=== PATIENT | male | born 1935 | race Caucasian/White ===

== ENCOUNTER 2018-02-08 14:21 | Emergency (ER) | payer MEDICARE ==
[2018-02-08 14:40] VITALS: TEMP 97.8
--- NOTE | 2018-02-08 14:45 | ED ---
General Adult HPI - General Chief complaint: Recheck/Abnormal Lab/Rx Stated complaint: Fall/Head Injury Time Seen by Provider: 02/08/18 14:45 Source: patient Mode of arrival: ambulatory Limitations: no limitations - History of Present Illness Initial comments: Wily is an 82yo M since the emergency department today for reevaluation of a headache injury. Patient reports that on Friday he was in his home, he stood on his couch to reach something that was high up, he lost his balance and fell striking his head on the corner of a door. He obtained an abrasion to his right forehead, the patient is on Coumadin and does report that he was bleeding quite profusely. He sought care at a walk in clinic where butterfly sutures were applied and he was advised to follow-up for a head CT if he had any headache or mental status change. Patient does report some mild headache and lightheadedness since the fall, today his took the bandage off of the abrasion and noticed that it started bleeding at which time she decided to bring him to the ER for reevaluation. - Related Data Home Medications Medication Instructions Recorded Confirmed Allopurinol [Zyloprim] 100 mg PO HS 02/08/18 02/08/18 Cetirizine HCl [Zyrtec] 10 mg PO DAILY 02/08/18 02/08/18 Furosemide [Lasix] 40 mg PO DAILY 02/08/18 02/08/18 Levothyroxine Sodium [Synthroid] 137 mcg PO DAILY 02/08/18 02/08/18 Omeprazole 20 mg PO DAILY 02/08/18 02/08/18 Tamsulosin HCl [Flomax] 0.4 mg PO HS 02/08/18 02/08/18 Warfarin [Coumadin] 2.5 mg PO DAILY 02/08/18 02/08/18 amLODIPine/VALSARTAN [Exforge 1 tab PO DAILY 02/08/18 02/08/18 10-160 mg Tablet] Allergies Allergy/AdvReac Type Severity Reaction Status Date / Time No Known Allergies Allergy Verified 02/08/18 15:54 Review of Systems ROS Statement: Those systems with pertinent positive or pertinent negative responses have been documented in the HPI. ROS Other: All systems not noted in ROS Statement are negative. Constitutional: Denies: fever, chills Eyes: Denies: eye pain, vision change ENT: Denies: ear pain, throat pain Respiratory: Denies: cough, dyspnea Cardiovascular: Denies: chest pain, palpitations Endocrine: Denies: fatigue Gastrointestinal: Denies: abdominal pain, nausea, vomiting Genitourinary: Denies: urgency, dysuria Musculoskeletal: Denies: back pain Skin: Reports: other (abrasion to right forehead). Denies: as per HPI Neurological: Reports: headache. Denies: abnormal gait Psychiatric: Denies: anxiety, depression Hematological/Lymphatic: Reports: easy bleeding, easy bruising Past Medical History Past Medical History: Atrial Fibrillation, Coronary Artery Disease (CAD), Hypertension, Thyroid Disorder Additional Past Medical History / Comment(s): thyroid cancer History of Any Multi-Drug Resistant Organisms: MRSA Date of last positivie culture/infection: 2001 MDRO Source:: abd Past Surgical History: Heart Catheterization, Pacemaker Additional Past Surgical History / Comment(s): stomach surgery, thyroiectomy Past Psychological History: No Psychological Hx Reported Smoking Status: Former smoker Past Alcohol Use History: Daily Past Drug Use History: None Reported General Exam Limitations: no limitations General appearance: alert, in no apparent distress Head exam: Present: normocephalic, other (abrasion to right forehead in the hairline) Eye exam: Present: PERRL, EOMI. Absent: scleral icterus ENT exam: Present: normal exam Neck exam: Present: normal inspection, full ROM, other (no midline cervical spine tenderness) Respiratory exam: Absent: respiratory distress Cardiovascular Exam: Present: normal rhythm GI/Abdominal exam: Present: soft. Absent: distended Rectal exam: Present: deferred Extremities exam: Present: normal inspection, full ROM Back exam: Present: normal inspection, full ROM Neurological exam: Present: alert, oriented X3, CN II-XII intact Psychiatric exam: Present: normal affect, normal mood Skin exam: Present: warm, dry Course Vital Signs 02/08/18 02/08/18 14:35 16:05 Temperature 97.8 F 97.8 F Pulse Rate 73 61 Respiratory 18 16 Rate Blood Pressure 123/73 116/68 O2 Sat by Pulse 96 98 Oximetry - Reevaluation(s) Reevaluation #1: She was reevaluated, labs and imaging were discussed. Wound was cleaned and to metal splinters were moved from the abrasion. 02/08/18 16:03 Medical Decision Making - Medical Decision Making Patient was seen and evaluated, history was obtained from the patient and at bedside Patient on Plavix for arrhythmia had a mechanical fall on Friday. Was evaluated in urgent care clinic, no imaging was performed. Bleeding was controlled and event was placed on the abrasion on his forehead Patient experiencing persistent headache, as well as mild bleeding from the abrasion Trauma Labs, CT of the brain were ordered Labs reveal an INR of 3.0 Otherwise unremarkable Reveals no acute traumatic injury Wound was cleansed, 2 additional metal splinters were removed from the wound. There is an abrasion there is no indication for any suturing or further bandaging. I do feel that the bandaging is just causing more harm than good as a bandage that was on did not cover all of the abrasion and one removed pulled off some the skin as well as old on his hair. Advised the patient that he can put gauze on his head and wear a hat if he wants to cover the abrasion. Advised him to keep the wound clean and avoid sun exposure to promote healing. All questions pertaining to care were answered the best my ability the patient was discharged home in stable condition. - Lab Data Result diagrams: 02/08/18 15:13 02/08/18 15:13 Lab Results 02/08/18 02/08/18 02/08/18 Range/Units 15:13 15:13 15:13 WBC 6.0 (3.8-10.6) k/uL RBC 4.83 (4.30-5.90) m/uL Hgb 13.5 (13.0-17.5) gm/dL Hct 40.3 (39.0-53.0) % MCV 83.4 (80.0-100.0) fL MCH 28.0 (25.0-35.0) pg MCHC 33.5 (31.0-37.0) g/dL RDW 14.3 (11.5-15.5) % Plt Count 163 (150-450) k/uL Neutrophils % 74 % Lymphocytes % 16 % Monocytes % 6 % Eosinophils % 2 % Basophils % 1 % Neutrophils # 4.4 (1.3-7.7) k/uL Lymphocytes # 1.0 (1.0-4.8) k/uL Monocytes # 0.3 (0-1.0) k/uL Eosinophils # 0.1 (0-0.7) k/uL Basophils # 0.0 (0-0.2) k/uL PT (9.0-12.0) sec INR (<1.2) APTT (22.0-30.0) sec Sodium 132 L (137-145) mmol/L Potassium 3.8 (3.5-5.1) mmol/L Chloride 93 L (98-107) mmol/L Carbon Dioxide 25 (22-30) mmol/L Anion Gap 14 mmol/L BUN 16 (9-20) mg/dL Creatinine 0.86 (0.66-1.25) mg/dL Est GFR (CKD-EPI)AfAm >90 (>60 ml/min/1.73 sqM) Est GFR (CKD-EPI)NonAf 82 (>60 ml/min/1.73 sqM) Glucose 138 H (74-99) mg/dL Calcium 8.8 (8.4-10.2) mg/dL Total Bilirubin 1.4 H (0.2-1.3) mg/dL AST 23 (17-59) U/L ALT 25 (21-72) U/L Alkaline Phosphatase 77 (38-126) U/L Total Creatine Kinase 162 (55-170) U/L CK-MB (CK-2) 3.4 H* (0.0-2.4) ng/mL CK-MB (CK-2) Rel Index 2.1 Total Protein 8.1 (6.3-8.2) g/dL Albumin 4.5 (3.5-5.0) g/dL 02/08/18 Range/Units 15:13 WBC (3.8-10.6) k/uL RBC (4.30-5.90) m/uL Hgb (13.0-17.5) gm/dL Hct (39.0-53.0) % MCV (80.0-100.0) fL MCH (25.0-35.0) pg MCHC (31.0-37.0) g/dL RDW (11.5-15.5) % Plt Count (150-450) k/uL Neutrophils % % Lymphocytes % % Monocytes % % Eosinophils % % Basophils % % Neutrophils # (1.3-7.7) k/uL Lymphocytes # (1.0-4.8) k/uL Monocytes # (0-1.0) k/uL Eosinophils # (0-0.7) k/uL Basophils # (0-0.2) k/uL PT 27.2 H (9.0-12.0) sec INR 3.0 H (<1.2) APTT 31.3 H (22.0-30.0) sec Sodium (137-145) mmol/L Potassium (3.5-5.1) mmol/L Chloride (98-107) mmol/L Carbon Dioxide (22-30) mmol/L Anion Gap mmol/L BUN (9-20) mg/dL Creatinine (0.66-1.25) mg/dL Est GFR (CKD-EPI)AfAm (>60 ml/min/1.73 sqM) Est GFR (CKD-EPI)NonAf (>60 ml/min/1.73 sqM) Glucose (74-99) mg/dL Calcium (8.4-10.2) mg/dL Total Bilirubin (0.2-1.3) mg/dL AST (17-59) U/L ALT (21-72) U/L Alkaline Phosphatase (38-126) U/L Total Creatine Kinase (55-170) U/L CK-MB (CK-2) (0.0-2.4) ng/mL CK-MB (CK-2) Rel Index Total Protein (6.3-8.2) g/dL Albumin (3.5-5.0) g/dL Disposition Clinical Impression: Encounter for wound re-check, Fall at home, Abrasion of scalp Disposition: HOME SELF-CARE Is patient prescribed a controlled substance at d/c from ED?: No Referrals: Delfino Fox DO [Primary Care Provider] - 1-2 days Time of Disposition: 16:05
[2018-02-08 15:29] LABS: Basophils % (A) 1 %; Eosinophils # (A) 0.1 k/uL (0-0.7); Eosinophils % (A) 2 %; HCT 40.3 % (39.0-53.0); HGB 13.5 gm/dL (13.0-17.5); Lymphocytes % (A) 16 %; MCHC 33.5 g/dL (31.0-37.0); MCV 83.4 fL (80.0-100.0); Mean Platelet Volume 7.3; Monocytes # (A) 0.3 k/uL (0-1.0); Monocytes % (A) 6 %; Neutrophils # (A) 4.4 k/uL (1.3-7.7); Neutrophils % (A) 74 %; Platelet Count 163 k/uL (150-450); RBC 4.83 m/uL (4.30-5.90); RDW 14.3 % (11.5-15.5)
[2018-02-08 15:37] LABS: Partial Thromboplastin Time 31.3 sec (22.0-30.0); Prothrombin Time 27.2 sec (9.0-12.0)
[2018-02-08 15:39] LABS: ALT 25 U/L (21-72); AST 23 U/L (17-59); Albumin 4.5 g/dL (3.5-5.0); Alkaline Phosphatase 77 U/L (38-126); Anion Gap 14 mmol/L; Blood Urea Nitrogen 16 mg/dL (9-20); Calcium 8.8 mg/dL (8.4-10.2); Carbon Dioxide 25 mmol/L (22-30); Chloride 93 mmol/L (98-107); Glucose 138 mg/dL (74-99); Potassium 3.8 mmol/L (3.5-5.1); Sodium 132 mmol/L (137-145); Total Bilirubin 1.4 mg/dL (0.2-1.3); Total Protein 8.1 g/dL (6.3-8.2)
--- NOTE | 2018-02-08 15:48 | CT ---
EXAMINATION TYPE: CT brain saida ledezma DATE OF EXAM: 02/08/2018 COMPARISON: None HISTORY: Patient complains of headache and lightheadedness post fall [address] DLP: 1023.2 mGycm Automated exposure control for dose reduction was used. TECHNIQUE: CT scan of the head and cervical spine are performed without contrast. FINDINGS: There is cerebral cortical atrophy. There is no mass effect nor midline shift. There is n o sign of intracranial hemorrhage. There is mild hypodensity around the frontal horns of the lateral ventricles. Calvarium is intact. There is a mild cervical kyphotic curvature at C to C3 level. There is degenerative disc space narrow ing throughout the cervical spine. There is no evidence for fracture. Skull base is intact. There is multilevel hypertrophic cervical facet arthropathy. IMPRESSION: Cerebral atrophy. No acute intracranial abnormality. Spondylotic changes in the cervical spine. No fracture seen.
[2018-02-08 16:02] LABS: Creatine Kinase MB 3.4 ng/mL (0.0-2.4)
[2018-02-08 16:06] VITALS: RESP 16
[2018-02-08 16:45] VITALS: BP 117/69; PULSE 69
== END 2018-02-08 16:20 | disposition home or self-care (01) ==
LOC: EC 14:21
DX: S00.01XA Abrasion of scalp, initial encounter (principal); S00.81XA Abrasion of other part of head, initial encounter; I48.91 Unspecified atrial fibrillation; I25.10 Atherosclerotic heart disease of native coronary artery without angina pectoris; I10 Essential (primary) hypertension; Z85.850 Personal history of malignant neoplasm of thyroid; Z86.14 Personal history of Methicillin resistant Staphylococcus aureus infection; Z95.818 Presence of other cardiac implants and grafts; Z95.0 Presence of cardiac pacemaker; Z87.891 Personal history of nicotine dependence; Z79.01 Long term (current) use of anticoagulants; Z79.899 Other long term (current) drug therapy; W08.XXXA Fall from other furniture, initial encounter; Y92.009 Unspecified place in unspecified non-institutional (private) residence as the place of occurrence of the external cause
CPT/HCPCS: 36415; 70450; 72125; 80053; 82550; 82553; 85025; 85610; 85730; 86850; 86900; 86901; 93005; 99284

== ENCOUNTER 2018-02-13 10:36 | Inpatient (IN) | payer MEDICARE ==
[2018-02-13] MEDS ORDERED: NALOXONE 0.4 MG/ML 1 ML VIAL IV STA (10:47)
--- NOTE | 2018-02-13 10:48 | ED ---
General Adult HPI - General Stated complaint: Altered Mental Status Time Seen by Provider: 02/13/18 10:41 Source: EMS, RN notes reviewed, old records reviewed Mode of arrival: EMS Limitations: altered mental status - History of Present Illness Initial comments: 82-year-old male presenting with altered mental status. History obtained from EMS. Patient is unable to contribute, and there is no family available for history at the time of initial presentation. Patient has been dealing with some confusion over the past one week. These episodes been intermittent. He did have a fall with minor head trauma and was evaluated emergency department. Today patient's family called EMS for confusion. Upon arrival patient was alert according to EMS, he had an episode with right-sided gaze and what appeared to EMS as seizure-like activity. Patient was incontinent of urine. He was combative and confused after this episode. He was given IV Versed by EMS prior to arrival. EMS reported stable vital signs with paced rhythm on the monitor. EMS state patient is on blood thinners. - Related Data Home Medications Medication Instructions Recorded Confirmed Allopurinol [Zyloprim] 100 mg PO HS 02/08/18 02/13/18 Cetirizine HCl [Zyrtec] 10 mg PO DAILY 02/08/18 02/13/18 Furosemide [Lasix] 40 mg PO DAILY 02/08/18 02/13/18 Levothyroxine Sodium [Synthroid] 137 mcg PO DAILY 02/08/18 02/13/18 Omeprazole 20 mg PO DAILY 02/08/18 02/13/18 Tamsulosin HCl [Flomax] 0.4 mg PO HS 02/08/18 02/13/18 Warfarin [Coumadin] 2.5 mg PO DAILY 02/08/18 02/13/18 amLODIPine/VALSARTAN [Exforge 1 tab PO DAILY 02/08/18 02/13/18 10-160 mg Tablet] Naproxen [Naprosyn] 500 mg PO Q12HR PRN 02/13/18 02/13/18 Allergies Allergy/AdvReac Type Severity Reaction Status Date / Time No Known Allergies Allergy Verified 02/13/18 11:00 Review of Systems ROS Statement: Those systems with pertinent positive or pertinent negative responses have been documented in the HPI. ROS Other: All systems not noted in ROS Statement are negative. Past Medical History Past Medical History: Atrial Fibrillation, Coronary Artery Disease (CAD), Hypertension, Thyroid Disorder Additional Past Medical History / Comment(s): thyroid cancer History of Any Multi-Drug Resistant Organisms: MRSA Date of last positivie culture/infection: 2001 MDRO Source:: abd Past Surgical History: Heart Catheterization, Pacemaker Additional Past Surgical History / Comment(s): stomach surgery, thyroiectomy Past Psychological History: No Psychological Hx Reported Smoking Status: Former smoker Past Alcohol Use History: Daily Past Drug Use History: None Reported General Exam Limitations: altered mental status General appearance: obtunded Head exam: Present: atraumatic, normocephalic Eye exam: Present: other ENT exam: Present: mucous membranes dry Neck exam: Present: normal inspection. Absent: tenderness, meningismus Respiratory exam: Present: decreased breath sounds. Absent: respiratory distress Cardiovascular Exam: Present: regular rate, normal rhythm GI/Abdominal exam: Present: soft. Absent: distended, tenderness, guarding Neurological exam: Present: motor sensory deficit, other (Patient withdrawals to pain in all 4 extremities, this appears symmetric). Absent: alert, oriented X3 Skin exam: Present: warm, dry, intact. Absent: cyanosis, diaphoretic Course Vital Signs 02/13/18 02/13/18 02/13/18 10:38 11:07 11:16 Temperature 96.8 F L Pulse Rate 85 87 Respiratory 18 18 16 Rate Blood Pressure 104/59 106/68 O2 Sat by Pulse 93 L 95 Oximetry 02/13/18 02/13/18 12:00 13:00 Temperature Pulse Rate 104 H 67 Respiratory 16 16 Rate Blood Pressure 117/85 138/71 O2 Sat by Pulse 99 92 L Oximetry EKG Findings - EKG Comments: EKG Findings:: EKG, electronic ventricular pacer, rate of 78, QRS duration 178, QTC 524 Medical Decision Making - Medical Decision Making 82-year-old male presenting with altered mental status and concern for seizure. Shortly patient is confused, neurologic exam is nonfocal. After sometime in the emergency department does regain normal level consciousness. He is alert and oriented, nonfocal neurologic exam. Complaining of back pain. No other complaints when the patient is awake and alert. Head CT obtained, this is negative for intracranial hemorrhage or mass effect. Chest x-ray does show a left hemidiaphragm elevation and atelectasis. X-ray of the thoracic spine is obtained when patient begins to complain of pain as he has point tenderness in the thoracic vertebrate. This does reveal a compression fracture at T8. This may be secondary to seizure. CBC is unremarkable. INR therapeutic 2.1. Initial lactic acidosis is 10.7, this is secondary to seizure and improves to normal with no specific treatment. Other laboratory studies are unremarkable. Patient is started on Keppra, he will be admitted for further evaluation of new onset seizure. - Lab Data Result diagrams: 02/13/18 11:01 02/13/18 11:01 Lab Results 02/13/18 02/13/18 02/13/18 Range/Units 11:01 11: 11: WBC 8.0 (3.8-10.6) k/uL RBC 4.89 (4.30-5.90) m/uL Hgb 13.1 (13.0-17.5) gm/dL Hct 42.2 (39.0-53.0) % MCV 86.4 (80.0-100.0) fL MCH 26.7 (25.0-35.0) pg MCHC 31.0 (31.0-37.0) g/dL RDW 14.1 (11.5-15.5) % Plt Count 182 (150-450) k/uL Neutrophils % 63 % Lymphocytes % 29 % Monocytes % 4 % Eosinophils % 1 % Basophils % 0 % Neutrophils # 5.0 (1.3-7.7) k/uL Lymphocytes # 2.3 (1.0-4.8) k/uL Monocytes # 0.3 (0-1.0) k/uL Eosinophils # 0.1 (0-0.7) k/uL Basophils # 0.0 (0-0.2) k/uL PT (9.0-12.0) sec INR (<1.2) APTT (22.0-30.0) sec VBG pH (7.31-7.41) VBG pCO2 (37-51) mmHg VBG HCO3 (24-28) mmol/L Sodium 133 L (137-145) mmol/L Potassium 3.7 (3.5-5.1) mmol/L Chloride 95 L (98-107) mmol/L Carbon Dioxide 16 L (22-30) mmol/L Anion Gap 22 mmol/L BUN 20 (9-20) mg/dL Creatinine 1.00 (0.66-1.25) mg/dL Est GFR (CKD-EPI)AfAm 81 (>60 ml/min/1.73 sqM) Est GFR (CKD-EPI)NonAf 70 (>60 ml/min/1.73 sqM) Glucose 126 H (74-99) mg/dL POC Glucose (mg/dL) (75-99) mg/dL POC Glu Braid Pattern Setter ID Plasma Lactic Acid Chucho (0.7-2.0) mmol/L Calcium 8.6 (8.4-10.2) mg/dL Total Bilirubin 1.3 (0.2-1.3) mg/dL AST 33 (17-59) U/L ALT 22 (21-72) U/L Alkaline Phosphatase 82 (38-126) U/L Total Creatine Kinase 155 (55-170) U/L CK-MB (CK-2) 2.9 H* (0.0-2.4) ng/mL CK-MB (CK-2) Rel Index 1.9 Troponin I <0.012 (0.000-0.034) ng/mL Total Protein 8.0 (6.3-8.2) g/dL Albumin 4.5 (3.5-5.0) g/dL 02/13/18 02/13/18 02/13/18 Range/Units 11:01 11:01 11:01 WBC (3.8-10.6) k/uL RBC (4.30-5.90) m/uL Hgb (13.0-17.5) gm/dL Hct (39.0-53.0) % MCV (80.0-100.0) fL MCH (25.0-35.0) pg MCHC (31.0-37.0) g/dL RDW (11.5-15.5) % Plt Count (150-450) k/uL Neutrophils % % Lymphocytes % % Monocytes % % Eosinophils % % Basophils % % Neutrophils # (1.3-7.7) k/uL Lymphocytes # (1.0-4.8) k/uL Monocytes # (0-1.0) k/uL Eosinophils # (0-0.7) k/uL Basophils # (0-0.2) k/uL PT 19.0 H (9.0-12.0) sec INR 2.1 H (<1.2) APTT 29.4 (22.0-30.0) sec VBG pH 7.19 L* (7.31-7.41) VBG pCO2 53 H (37-51) mmHg VBG HCO3 20 L (24-28) mmol/L Sodium (137-145) mmol/L Potassium (3.5-5.1) mmol/L Chloride (98-107) mmol/L Carbon Dioxide (22-30) mmol/L Anion Gap mmol/L BUN (9-20) mg/dL Creatinine (0.66-1.25) mg/dL Est GFR (CKD-EPI)AfAm (>60 ml/min/1.73 sqM) Est GFR (CKD-EPI)NonAf (>60 ml/min/1.73 sqM) Glucose (74-99) mg/dL POC Glucose (mg/dL) (75-99) mg/dL POC Glu Braid Pattern Setter ID Plasma Lactic Acid Chucho 10.7 H* (0.7-2.0) mmol/L Calcium (8.4-10.2) mg/dL Total Bilirubin (0.2-1.3) mg/dL AST (17-59) U/L ALT (21-72) U/L Alkaline Phosphatase (38-126) U/L Total Creatine Kinase (55-170) U/L CK-MB (CK-2) (0.0-2.4) ng/mL CK-MB (CK-2) Rel Index Troponin I (0.000-0.034) ng/mL Total Protein (6.3-8.2) g/dL Albumin (3.5-5.0) g/dL 02/13/18 02/13/18 Range/Units 11:06 13:43 WBC (3.8-10.6) k/uL RBC (4.30-5.90) m/uL Hgb (13.0-17.5) gm/dL Hct (39.0-53.0) % MCV (80.0-100.0) fL MCH (25.0-35.0) pg MCHC (31.0-37.0) g/dL RDW (11.5-15.5) % Plt Count (150-450) k/uL Neutrophils % % Lymphocytes % % Monocytes % % Eosinophils % % Basophils % % Neutrophils # (1.3-7.7) k/uL Lymphocytes # (1.0-4.8) k/uL Monocytes # (0-1.0) k/uL Eosinophils # (0-0.7) k/uL Basophils # (0-0.2) k/uL PT (9.0-12.0) sec INR (<1.2) APTT (22.0-30.0) sec VBG pH (7.31-7.41) VBG pCO2 (37-51) mmHg VBG HCO3 (24-28) mmol/L Sodium (137-145) mmol/L Potassium (3.5-5.1) mmol/L Chloride (98-107) mmol/L Carbon Dioxide (22-30) mmol/L Anion Gap mmol/L BUN (9-20) mg/dL Creatinine (0.66-1.25) mg/dL Est GFR (CKD-EPI)AfAm (>60 ml/min/1.73 sqM) Est GFR (CKD-EPI)NonAf (>60 ml/min/1.73 sqM) Glucose (74-99) mg/dL POC Glucose (mg/dL) 112 H (75-99) mg/dL POC Glu Braid Pattern Setter ID Gaye Wagner Plasma Lactic Acid Chucho 1.4 (0.7-2.0) mmol/L Calcium (8.4-10.2) mg/dL Total Bilirubin (0.2-1.3) mg/dL AST (17-59) U/L ALT (21-72) U/L Alkaline Phosphatase (38-126) U/L Total Creatine Kinase (55-170) U/L CK-MB (CK-2) (0.0-2.4) ng/mL CK-MB (CK-2) Rel Index Troponin I (0.000-0.034) ng/mL Total Protein (6.3-8.2) g/dL Albumin (3.5-5.0) g/dL Disposition Clinical Impression: New onset seizure Disposition: ADMITTED IP TO THIS [facility] Condition: Stable Is patient prescribed a controlled substance at d/c from ED?: No Referrals: Delfino Fox DO [Primary Care Provider] - 1-2 days Decision to Admit Reason: Admit from EC Decision Date: 02/13/18 Decision Time: 14:15
[2018-02-13 11:15] LABS: Basophils % (A) 0 %; Eosinophils # (A) 0.1 k/uL (0-0.7); Eosinophils % (A) 1 %; HCT 42.2 % (39.0-53.0); HGB 13.1 gm/dL (13.0-17.5); Lymphocytes # (A) 2.3 k/uL (1.0-4.8); Lymphocytes % (A) 29 %; MCH 26.7 pg (25.0-35.0); MCV 86.4 fL (80.0-100.0); Mean Platelet Volume 7.9; Monocytes # (A) 0.3 k/uL (0-1.0); Monocytes % (A) 4 %; Neutrophils % (A) 63 %; Platelet Count 182 k/uL (150-450); RBC 4.89 m/uL (4.30-5.90); RDW 14.1 % (11.5-15.5)
--- NOTE | 2018-02-13 11:17 | CT ---
EXAMINATION TYPE: CT brain wo con DATE OF EXAM: 02/13/2018 COMPARISON: 02/08/2018 INDICATION: Altered mental status DLP: 1207 mGycm, Automated exposure control for dose reduction was used. CONTRAST: None CT of the brain is performed utilizing 3 mm thick sections through the posterior fossa and 3 mm thick sections through the remaining calvarium. Study is performed within 24 hours of arrival to the hosp ital. No abnormal hyperdensity is present to suggest an acute intracranial hemorrhage. No mass lesion is evident. No acute infarcts are evident. There is periventricular white matter hypodensity, likely on the basis of chronic white matter ischemic changes. Ventricles and sulci are mildly prominent for the patient age. Paranasal sinuses and mastoid air cells within the [id number] are clear. IMPRESSIONS: 1. Mild periventricular white matter ischemic type changes and age-related atrophy, stable from com parison.
[2018-02-13 11:18] LABS: Glucose,Whole Blood 112 mg/dL (75-99)
[2018-02-13 11:23] LABS: INR 2.1 (<1.2); Partial Thromboplastin Time 29.4 sec (22.0-30.0)
[2018-02-13] MEDS ORDERED: levETIRAcetam IV 1,000 MG in SALINE 1 100ML.BAG IVPB STA (11:23)
[2018-02-13 11:33] LABS: Albumin 4.5 g/dL (3.5-5.0); Calcium 8.6 mg/dL (8.4-10.2); Total Bilirubin 1.3 mg/dL (0.2-1.3)
[2018-02-13 11:35] LABS: Creatine Kinase 155 U/L (55-170)
[2018-02-13 11:36] LABS: Potassium 3.7 mmol/L (3.5-5.1)
[2018-02-13 11:47] LABS: Troponin I <0.012 ng/mL (0.000-0.034)
--- NOTE | 2018-02-13 11:48 | XR ---
EXAMINATION TYPE: XR chest 2V DATE OF EXAM: 02/13/2018 COMPARISON: NONE HISTORY: Altered mental status TECHNIQUE: Frontal and lateral views of the chest are obtained. FINDINGS: There is left hemidiaphragm elevation that may represent diaphragmatic paralysis or could be a chronic finding however no priors are available for comparison. This shifts the cardiac silhouet te to the right. Cardiac silhouette is enlarged. Subsegmental linear left basilar atelectasis is note d. Dual lead left-sided cardiac device is seen. There is generalized osseous demineralization and deg enerative change of the glenohumeral joints and thoracic spine. No focal consolidation or pneumothora x. No sizable pleural effusion. IMPRESSION: Left hemidiaphragm elevation and left basilar atelectasis are present although chronicit y is unknown without prior comparisons. If there is concern for diaphragmatic paralysis sniff test co uld be performed.
[2018-02-13 11:50] LABS: Creatine Kinase MB 2.9 ng/mL (0.0-2.4)
[2018-02-13] MEDS ORDERED: KETOROLAC 30 MG/ML 1 ML VIAL IVP STA (11:58)
[2018-02-13] MEDS ORDERED: SODIUM CHLORIDE 0.9% 1,000 ML IV ONE (11:58)
--- NOTE | 2018-02-13 12:38 | XR ---
EXAMINATION TYPE: XR thoracic spine 2V DATE OF EXAM: 02/13/2018 COMPARISON: None HISTORY: Pain TECHNIQUE: Three-view thoracic spine FINDINGS: There are 12 thoracic type vertebral bodies. The pedicles are intact. Disc heights are pres erved. Loss of T8 vertebral body height. No posterior wall displacement is identified in these images . Remaining vertebral body heights are preserved. IMPRESSION: 1. Compression deformity at T8 without posterior wall displacement is identified. This is of indeter minate age.
[2018-02-13 12:41] LABS: VBG PH 7.19 (7.31-7.41)
[2018-02-13] MEDS ORDERED: MORPHINE SULFATE 2 MG/ML SYRINGE IVP STA (13:16)
[2018-02-13] MEDS ORDERED: NALOXONE 0.4 MG/ML 1 ML VIAL IV PRN (14:31)
[2018-02-13] MEDS ORDERED: ACETAMINOPHEN TAB 325 MG TAB PO PRN (14:31)
[2018-02-13] MEDS ORDERED: IBUPROFEN 400 MG TAB PO PRN (14:31)
[2018-02-13] MEDS ORDERED: LORazepam 2 MG/ML INJ IV PRN (14:35)
[2018-02-13 14:45] LABS: Appearance,Urine Clear (Clear); Bilirubin,Urine Negative (Negative); Blood,Urine Negative (Negative); Color,Urine Light Yellow; Glucose,Urine (UA) Negative (Negative); Ketones,Urine Negative (Negative); Leukocyte Esterase,Urine Negative (Negative); Nitrite,Urine Negative (Negative); Protein,Urine Negative (Negative); Specific Gravity,Urine 1.005 (1.001-1.035); Urobilinogen,Urine <2.0 mg/dL (<2.0)
[2018-02-13 14:59] LABS: Amphetamine Screen,Urine Not Detected (NotDetected); Barbiturate Screen,Urine Not Detected (NotDetected); Benzodiazepines Screen,Urine Not Detected (NotDetected); Cocaine Screen,Urine Not Detected (NotDetected); Methadone Screen, Urine Not Detected (NotDetected); Opiate Screen,Urine Detected (NotDetected); Oxycodone Screen, Urine Not Detected (NotDetected); Phencyclidine Screen,Urine Not Detected (NotDetected); Tricyclic Antidepressant,Urine Not Detected (NotDetected); Urn Cannabinoid Scrn Not Detected (NotDetected)
[2018-02-13] MEDS ORDERED: NAPROXEN 250 MG TAB PO PRN (16:08)
[2018-02-13] MEDS ORDERED: ALPRAZolam 0.25 MG TAB PO PRN (16:09)
[2018-02-13] MEDS: MAGNESIUM SULFATE-D5W PMX 1 GM in DEXTROSE/WATER 1 100ML.BAG IVPB SCH ×2 (16:40→22:00)
[2018-02-13] MEDS: MORPHINE SULFATE 4 MG/ML SYRINGE IV PRN ×2 (17:37→22:18)
[2018-02-13 18:27] VITALS: BMI 25.8
[2018-02-13] MEDS ORDERED: MAGNESIUM SULFATE-D5W PMX 1 GM in DEXTROSE/WATER 1 100ML.BAG IVPB ONE (19:30)
[2018-02-13] MEDS ORDERED: SODIUM CHLORIDE 0.9% 1,000 ML with MVI, ADULT NO.4 WITH VIT K 10 ML, THIAMINE 100 MG, F... IV ONE ×4 (19:33)
[2018-02-13] MEDS: HYDROcodone/APAP 5-325MG 1 EACH TAB PO PRN (20:05)
[2018-02-13] MEDS: TAMSULOSIN 0.4 MG CAP.ER.24H PO SCH (20:06)
[2018-02-13] MEDS: MELATONIN 3 MG TABLET PO SCH (20:06)
[2018-02-13] MEDS: ALLOPURINOL 100 MG TAB PO SCH (20:06)
--- NOTE | 2018-02-13 20:13 | HP ---
HISTORY AND PHYSICAL CHIEF COMPLAINT: Change in mental status, confusion as well seizures. HISTORY OF PRESENT ILLNESS: This 82-year-old gentleman with a past medical history of atrial fibrillation, CAD, hypertension, hypothyroidism, was following with a physician in [place], [place]. The patient recently moved to [place]. The patient had a fall apparently a week ago. The patient is drinking about 2-3 beers a day. Patient was not drinking for some time and today the saw the patient was confused. The patient had eye rolling backward and a stiff posture and the patient was taken to [facility] and admitted for further evaluation and treatment. The patient is still minimally confused. Otherwise there is no history of any fever, any rigors, chills. No history of any chest pain, palpitations, hematochezia or melena. PAST MEDICAL HISTORY: Atrial fibrillation, CAD, hypertension, hyperlipidemia, MRSA, cardiac catheterization. MEDICATIONS PRIOR TO ADMISSION: Include: 1. Exforge 10/160 mg p.o. daily. 2. Coumadin 2.5 mg daily. 3. Flomax 0.4 q.h.s. omeprazole 20 mg daily. 4. Naprosyn 500 mg p.o. b.i.d. 5. Synthroid 136 mcg p.o. daily. 6. Lasix 40 mg p.o. daily. 7. Zyrtec 10 mg daily. 8. Zyloprim 100 mg p.o. q.h.s. ALLERGIES: None. FAMILY HISTORY: History of myocardial infarction in the family. SOCIAL HISTORY: Previous history of smoking. No history of alcohol intake. REVIEW OF SYSTEMS: ENT: Diminished hearing, diminished vision. CARDIOVASCULAR: No angina, palpitations. RESPIRATORY: No cough or hemoptysis. GI: No nausea or vomiting. : No dysuria. NERVOUS: As mentioned earlier. ALLERGY/IMMUNOLOGY: No asthma or hay fever. MUSCULOSKELETAL: As mentioned earlier. HEMATOLOGY/ONCOLOGY: No history of anemia. ENDOCRINE: No history of diabetes. Hypothyroidism. CONSTITUTIONAL: As mentioned earlier. DERMATOLOGY: Negative. RHEUMATOLOGY: Negative. PSYCHIATRY: As mentioned earlier. PHYSICAL EXAMINATION: Alert, oriented x3. Pulse 63, blood pressure 140/88, respirations 16, temperature 96.4, pulse ox 93% on 2L. HEENT: Conjunctivae normal. Oral mucosa moist. NECK: No jugular venous distention. No carotid bruits. No lymph node enlargement. CARDIOVASCULAR: S1, S2 muffled. No S3, S4. RESPIRATORY: Breath sounds diminished in the bases. No rhonchi. No crackles. ABDOMEN: Soft, nontender. No mass palpable. LEGS: No edema. No swelling. NERVOUS SYSTEM: Higher functions as mentioned earlier. Moves all 4 limbs. No focal motor or sensory deficits. LYMPHATIC: No lymphadenopathy in neck or axillae. SKIN: No ulcer, rash or bleeding. SKULL: Superficial excoriations present. LABS: INR 2.1, VBG of 7.1. Sodium 133. Lactic acid 10.7, improved to 1.4 with hydration. UA noted. The CT scan of the brain which was done in the ER showed mild periventricular white matter changes. Chest x-ray: Left hemidiaphragm elevation and left basilar atelectasis. Thoracic spine x-rays showed compression deformity of T8. ASSESSMENT: 1. New onset seizures for evaluation. 2. History of fall. 3. T8 compression fracture, age indeterminate. 4. Left base atelectasis. 5. History of atrial fibrillation. 6. History of coronary artery disease. 7. History of EtOH. 8. Possible withdrawal seizures. 9. Hypertension. 10.Hypothyroidism. 11.History of thyroid cancer. 12.History of Methicillin-resistant Staphylococcus aureus. 13.History of pacemaker. 14.History of cardiac catheterization. 15.Remote history of nicotine dependence. 16.Elevated lactic acid, possibly secondary to seizures. RECOMMENDATIONS AND DISCUSSION: In this 82-year-old gentleman who presented with multiple complex medical issues, will monitor the patient closely, continue the current medical management and symptomatic treatment. Otherwise at this time, I would recommend monitor closely, seizure precautions. We will observe seizure as well as DT precautions. Otherwise, Keppra has been initiated and Neurology consultation. Will resume the home medications supplement multivitamins and repeat labs have been ordered. Magnesium will be checked. We will initiate multivitamin drip, also. The overall prognosis is guarded because of multiple complex medical issues and further recommendations to follow. See orders for further details. Prognosis guarded. Alcohol cessation has been recommended. A copy of this dictation will be forwarded to Dr. Fox, who is the primary physician. Patient and the family understand and agree. MMODL / IJN: [id number] /
[2018-02-13] MEDS: levETIRAcetam 500 MG TAB PO SCH (22:17)
[2018-02-14 06:50] LABS: Basophils % (A) 0 %; Eosinophils # (A) 0.1 k/uL (0-0.7); Eosinophils % (A) 1 %; HCT 40.6 % (39.0-53.0); HGB 13.1 gm/dL (13.0-17.5); Lymphocytes # (A) 0.7 k/uL (1.0-4.8); Lymphocytes % (A) 16 %; MCH 27.2 pg (25.0-35.0); MCHC 32.4 g/dL (31.0-37.0); Mean Platelet Volume 7.5; Monocytes # (A) 0.3 k/uL (0-1.0); Monocytes % (A) 6 %; Neutrophils # (A) 3.6 k/uL (1.3-7.7); Neutrophils % (A) 76 %; Platelet Count 163 k/uL (150-450); RBC 4.83 m/uL (4.30-5.90); WBC 4.7 k/uL (3.8-10.6)
[2018-02-14 06:54] LABS: Prothrombin Time 18.2 sec (9.0-12.0)
[2018-02-14] MEDS: LEVOTHYROXINE 137 MCG TAB PO SCH (06:59)
[2018-02-14] MEDS: PANTOPRAZOLE 40 MG TABLET PO SCH (06:59)
[2018-02-14] MEDS: HYDROcodone/APAP 5-325MG 1 EACH TAB PO PRN ×2 (06:59→23:40)
[2018-02-14 07:20] LABS: Anion Gap 8 mmol/L; Blood Urea Nitrogen 22 mg/dL (9-20); Calcium 8.9 mg/dL (8.4-10.2); Carbon Dioxide 27 mmol/L (22-30); Chloride 95 mmol/L (98-107); Glucose 94 mg/dL (74-99); Magnesium 1.6 mg/dL (1.6-2.3); Potassium 4.3 mmol/L (3.5-5.1); Sodium 130 mmol/L (137-145)
[2018-02-14] MEDS: VALSARTAN 160 MG TAB PO SCH (09:27)
[2018-02-14] MEDS: LORATADINE 10 MG TAB PO SCH (09:28)
[2018-02-14] MEDS: FUROSEMIDE 40 MG TAB PO SCH (09:28)
[2018-02-14] MEDS: amLODIPine 10 MG TAB PO SCH (09:28)
[2018-02-14] MEDS: levETIRAcetam 500 MG TAB PO SCH ×2 (09:28→19:45)
[2018-02-14] MEDS: MORPHINE SULFATE 4 MG/ML SYRINGE IV PRN (12:29)
[2018-02-14] MEDS: MAGNESIUM SULFATE-D5W PMX 1 GM in DEXTROSE/WATER 1 100ML.BAG IVPB SCH ×2 (12:32→13:41)
--- NOTE | 2018-02-14 16:00 | CT ---
EXAMINATION TYPE: CT lumbar spine wo con DATE OF EXAM: 02/14/2018 3:45 PM COMPARISON: None HISTORY: Back pain. CT DLP: 582.2 mGycm Automated exposure control for dose reduction was used. Unenhanced CT of the lumbar spine was performed. Bone and soft tissue window settings are submitted as well as coronal and sagittal reconstructions. FINDINGS: Vertebral bodies of the lumbar spine maintain normal vertebral body heights and alignment. Focal sclerotic nonspecific lesion is seen of the right lateral margin of the L3 vertebral body measu ring 6 mm. And additional subcentimeter focus is seen within the right sacral ala on series 4 image 8 4. Multilevel degenerative disc disease would be better evaluated on MRI. There is also limited evalu ation of the spinal canal on CT. Extensive calcific atheromatous changes seen of the abdominal aorta and its branches. L1-L2: There is a broad-based disc bulge and facet arthropathy resulting in mild bilateral neural for aminal narrowing. No discrete spinal canal stenosis. L2-L3: There is a broad-based disc bulge, ligamentum flavum buckling, and facet arthropathy resulting in mild bilateral neural foraminal narrowing and without discrete spinal canal stenosis on CT. L3-L4: There is a broad-based disc bulge and facet arthropathy with ligamentum flavum buckling result ing in mild bilateral neural foraminal narrowing. No discrete disc herniation on CT or spinal canal s tenosis. L4-L5: There is a possible right paracentral disc herniation that would be better evaluated with MRI. There is at least a broad-based disc bulge resulting in moderate bilateral neural foraminal narrowin g and mild spinal canal stenosis. L5-S1: There is a broad-based disc bulge and facet arthropathy resulting in mild bilateral neural for aminal narrowing. No spinal canal stenosis. IMPRESSION: 1. No evidence of acute fracture or malalignment of the lumbar spine. The previously seen compression deformity of the radiographs of 02/06/1718 at T8 is not seen in the [id number] on this examination of the lumbar spine. 2. Multilevel moderate degenerative disc disease creating variable degrees of neural foraminal narrow ing as described above and at least mild spinal canal stenosis at L4-L5. There is suspicion for right paracentral disc herniation at L4-L5. This could be better evaluated with MRI. 2. 2 nonspecific subcentimeter sclerotic foci that could relate to bone islands but are overall indet erminant.
--- NOTE | 2018-02-14 16:20 | PN ---
PROGRESS NOTE DATE OF SERVICE: 02/14/2018 This is an 82-year-old gentleman admitted with change in mental status, confusion, seizure, also had alcohol withdrawal symptoms. There is no severe hypomagnesemia and thoracic spine x-ray was also done yesterday showed a compression deformity of T8 without any posterior wall displacement. No chest pain. No palpitations. The patient complaining of severe back pain. PAST MEDICAL HISTORY: Reviewed. REVIEW OF SYSTEMS: CARDIOVASCULAR: No angina. RESPIRATION: As mentioned earlier. GI: As mentioned earlier. : Negative. NERVOUS SYSTEM: No numbness, weakness. CURRENT MEDICATIONS: 1. Tylenol 650 q.6 p.r.n. 2. [place] 5 mg. 3. Zyloprim 100 mg b.i.d. 4. Xanax 0.5 t.i.d. 5. Norvasc 10 mg daily. 6. Lasix 40 mg daily. 7. Motrin. 8. Keppra 500 mg b.i.d. 9. Synthroid 137 mcg p.o. daily. 10.Claritin daily. 11.Ativan 2 mg p.r.n. 12.Melatonin 3 mg. 13.Narcan. 14.Naprosyn. 15.Protonix. 16.Flomax 0.4 q.h.s. 17.Diovan 160 mg p.o. daily. PHYSICAL EXAMINATION: Alert and oriented x3. Pulse 72, blood pressure 144/75, respiration 18, temperature 97 degrees, pulse ox 94% on 2 L. HEENT: Conjunctivae normal, oral mucosa moist. Neck is no jugular venous distention. No lymph node enlargement. CARDIOVASCULAR SYSTEMS: S1, S2, muffled. RESPIRATION: Breath sounds diminished at the bases, a few scattered rhonchi, no crackles. ABDOMEN: Soft, nontender. No mass palpable. LEGS: No edema, no swelling. NERVOUS SYSTEM: Diffusely weak. Back tenderness present. LABS: CBC within normal limits. INR is 2. Sodium is 130. ASSESSMENT: 1. New onset seizures, possibly drug withdrawal seizures. 2. Severe hypomagnesemia. 3. History of fall. 4. T8 compression fracture, age indeterminate. 5. Left base atelectasis. 6. History of atrial fibrillation. 7. History of coronary artery disease. 8. History of ETOH. 9. Possible withdrawal seizures. 10.Hypertension. 11.Hypothyroidism. 12.History of thyroid cancer. 13.History of methicillin-resistant Staphylococcus aureus. 14.History of pacemaker. 15.History of cardiac catheterization. 16.Remote history of nicotine dependence. 17.Elevated lactic acid, possibly secondary to seizures. RECOMMENDATION: Recommend to continue current management. I would recommend intravenous morphine on a p.r.n. basis. Otherwise, I would also recommend a CAT scan. DVT prophylaxis. Otherwise, continue to monitor. Guarded prognosis because of multiple complex medical issues. See orders for details. CAT scan of the spine will be obtained and further recommendations to follow. Also get a Dr. Rivas for evaluation for evaluation of the multiple fractures also. MMODL / IJN: [id number] /
[2018-02-14] MEDS: KETOROLAC 30 MG/ML 1 ML VIAL IVP SCH (19:44)
[2018-02-14] MEDS: MELATONIN 3 MG TABLET PO SCH (19:45)
[2018-02-14] MEDS: ALLOPURINOL 100 MG TAB PO SCH (19:45)
[2018-02-14] MEDS: TAMSULOSIN 0.4 MG CAP.ER.24H PO SCH (19:45)
--- NOTE | 2018-02-14 21:44 | P.CNNES ---
History of Present Illness Consult date: 02/14/18 Requesting physician: Suman Brambila Reason for Consult: New Onset Seizure Chief complaint: Seizure History of Present Illness: neurology is consult seeing on an 82-year-old male with altered mental status, possible seizure. Patient was confused in the ED. He then returned to baseline , became alert and oriented with nonfocal neurological exam. Patient had secondary back pain complaints. Head CT was negative for intracranial hemorrhage or mass effect. X-ray of thoracic spine for point tenderness over thoracic region. Noted compression fracture T8. Indeterminate age, possibly related to fall but undetermined. Patient was started on Keppra and admitted for further observation. At initial contact, patient was resting in bed, no acute distress, alert and oriented 3 and family in the room. Patient and family describe a proximally 3- 6 months of progressive petit mall escalating to grand mal seizure with the most recent occurrence. Patient has been having petit mal seizure like activity several times per week. Patient did state he could feel the occurrence pending prior to the actual event. Patient has no prior seizure history. Review of Systems Systems not noted in HPI or negative Past Medical History Past Medical History: Atrial Fibrillation, Coronary Artery Disease (CAD), Hypertension, Thyroid Disorder Additional Past Medical History / Comment(s): thyroid cancer History of Any Multi-Drug Resistant Organisms: MRSA Date of last positivie culture/infection: 2001 MDRO Source:: abd Past Surgical History: Heart Catheterization, Pacemaker Additional Past Surgical History / Comment(s): stomach surgery, thyroidectomy, sinus surgery Past Anesthesia/Blood Transfusion Reactions: No Reported Reaction Type of Cardiac Device: Unknown Device Placement Date:: October 2015 Past Psychological History: No Psychological Hx Reported Smoking Status: Former smoker Past Alcohol Use History: Daily Additional Past Alcohol Use History / Comment(s): 2-3 beers daily, not drinking recently due to being sick-last drink one week ago Past Drug Use History: None Reported - Past Family History Father Family Medical History: Myocardial Infarction ([place]) Sister(s) Family Medical History: Cancer Additional Family Medical History / Comment(s): Thyroid Mother Family Medical History: Diabetes Mellitus Medications and Allergies Home Medications Medication Instructions Recorded Confirmed Type Allopurinol [Zyloprim] 100 mg PO HS 02/08/18 02/13/18 History Cetirizine HCl [Zyrtec] 10 mg PO DAILY 02/08/18 02/13/18 History Furosemide [Lasix] 40 mg PO DAILY 02/08/18 02/13/18 History Levothyroxine Sodium [Synthroid] 137 mcg PO DAILY 02/08/18 02/13/18 History Omeprazole 20 mg PO DAILY 02/08/18 02/13/18 History Tamsulosin HCl [Flomax] 0.4 mg PO HS 02/08/18 02/13/18 History Warfarin [Coumadin] 2.5 mg PO DAILY 02/08/18 02/13/18 History amLODIPine/VALSARTAN [Exforge 1 tab PO DAILY 02/08/18 02/13/18 History 10-160 mg Tablet] Naproxen [Naprosyn] 500 mg PO Q12HR PRN 02/13/18 02/13/18 History Allergies Allergy/AdvReac Type Severity Reaction Status Date / Time No Known Allergies Allergy Verified 02/13/18 11:00 Physical Examination - Vital Signs Vital Signs: Vital Signs Temp Pulse Resp BP Pulse Ox 02/14/18 19:43 97.4 F L 70 20 151/77 91 L 02/14/18 16:00 97.0 F L 64 18 132/68 92 L 02/14/18 12:00 97.2 F L 61 18 123/67 90 L 02/14/18 08:00 97.0 F L 72 18 144/74 95 02/14/18 04:00 97.9 F 63 16 137/72 97 02/14/18 00:00 96.3 F L 61 18 162/77 95 Intake and Output 02/14/18 02/14/18 02/14/18 06:59 14:59 22:59 Intake Total 590 530 Output Total 200 750 225 Balance -200 -160 305 Intake: Intake, IV Titration 180 200 Amount Magnesium Sulfate-D5w Pmx 100 1 gm In Dextrose/Water 1 100ml.bag @ 100 mls/hr IVPB Q1H SHARIF Rx#: [id number] Magnesium Sulfate-D5w Pmx 100 1 gm In Dextrose/Water 1 100ml.bag @ 100 mls/hr IVPB Q1H SHARIF Rx#: [id number] Sodium Chloride 0.9% 1, 180 000 ml @ 60 mls/hr IV . [id number] ONE with Mvi, Adult No.4 with Vit K 10 ml with Thiamine 100 mg with Folic Acid 1 mg Rx#: [id number] Oral 410 330 Output: Urine 200 750 225 Other: # Voids 0 Weight 74.5 kg General appearance: Alert & oriented x3, no apparent distress. Head: Atraumatic, normocephalic, normal inspection Eyes: Well appearance, PERRLA, EOMI. Absent scleral icterus, conjunctival injection, nystagmus, periorbital swelling. Ear, nose and throat: Normal exam, mucous membranes moist Neck: Normal inspection, absent tenderness, lymphadenopathy. Respiratory: No increased work of breathing Cardiovascular: Regular rate, rhythm GI/abdominal: Normal bowel sounds, nondistended, no tenderness, no guarding, no rebound, no rigidity. Extremities: All range of motion, normal capillary refill, no tenderness, pedal edema joint swelling, calf tenderness. Integumentary: Frontal laceration/avulsion in healing process. Neurological: cranial nerves II through XII intact no lateralizing weakness no seizure activity noted on physical exam no pronator drift and no nystagmus. equal in all 4 extremities Sensation: normal to light touch 4 Psychological: Mood and affect appropriate for setting. Results as previously noted EEG ordered - Laboratory Findings CBC and BMP: 02/14/18 06:29 02/14/18 06:29 Abnormal Lab Findings: Abnormal Labs 02/13/18 02/13/18 02/13/18 11:01 11:01 11:01 Lymphocytes # PT INR VBG pH VBG pCO2 VBG HCO3 Sodium 133 L Chloride 95 L Carbon Dioxide 16 L BUN Glucose 126 H POC Glucose (mg/dL) Plasma Lactic Acid Chucho 10.7 H* Magnesium CK-MB (CK-2) 2.9 H* Urine Opiates Screen 02/13/18 02/13/18 02/13/18 11:01 11:01 11:01 Lymphocytes # PT 19.0 H INR 2.1 H VBG pH 7.19 L* VBG pCO2 53 H VBG HCO3 20 L Sodium Chloride Carbon Dioxide BUN Glucose POC Glucose (mg/dL) Plasma Lactic Acid Chucho Magnesium 0.6 L* CK-MB (CK-2) Urine Opiates Screen 02/13/18 02/13/18 02/14/18 11:06 14:39 06:29 Lymphocytes # 0.7 L PT INR VBG pH VBG pCO2 VBG HCO3 Sodium Chloride Carbon Dioxide BUN Glucose POC Glucose (mg/dL) 112 H Plasma Lactic Acid Chucho Magnesium CK-MB (CK-2) Urine Opiates Screen Detected H 02/14/18 02/14/18 06:29 06:29 Lymphocytes # PT 18.2 H INR 2.0 H VBG pH VBG pCO2 VBG HCO3 Sodium 130 L Chloride 95 L Carbon Dioxide BUN 22 H Glucose POC Glucose (mg/dL) Plasma Lactic Acid Chucho Magnesium CK-MB (CK-2) Urine Opiates Screen Assessment and Plan (1) New onset seizure Narrative/Plan: although the patient has no prior history of seizure, it does appear that over the last 3-6 months, the patient has been having petit mal seizure activity on a consistent but intermittent basis. Patient notes that he was fatigued after occurrences within that timeframe as well as had personal perception of pending occurrence. It also appears that the patient has developed initial grand mal seizure just prior to presentation. Patient did have loss of bowel and bladder , was postictal with confusion and lethargy. After re-discussing the sequence of events, it does appear that the seizure preceded the fall and thus the injury was secondary to seizure. Patient reports no other neurological deficits and none were found on physical exam. Patient CT brain is as noted. Patient is tolerating medication well. Patient was started on IV Keppra 1000 mg and will be transitioned to 500 mg twice a day as the maintenance dose. Patient has remained asymptomatic since medication therapy was started. If patient remains asymptomatic and EEG is taken, patient can be cleared from a neurological standpoint on 02/15/18. Patient would then be required to follow up in the office within 10-14 days. Nursing to report any neurological status changes, maintain seizure precaution and neurological checks as ordered. Current Visit: Yes Status: Acute Code(s): R56.9 - UNSPECIFIED CONVULSIONS SNOMED Code(s): 62968252 (2) Abrasion of scalp Narrative/Plan: Secondary to fall related seizure Current Visit: No Status: Acute Code(s): S00.01XA - ABRASION OF SCALP, INITIAL ENCOUNTER SNOMED Code(s): 731640950 (3) Fall at home Narrative/Plan: as noted above Current Visit: No Status: Acute Code(s): W19.XXXA - UNSPECIFIED FALL, INITIAL ENCOUNTER; Y92.009 - UNSP PLACE IN UNSP NON-[facility] RESIDENCE PL[facility] SNOMED Code(s): 24672211 Plan: STATUS: Neurology will continue to follow and provide updates as needed or warranted. If patient's EEG is taken and patient remains asymptomatic prior to neuro-oncology rounding on 02/15/18, patient can be discharged from a neurological standpoint. I have discussed the plan of care with the physician prior to implementation and he agrees with the plan as implemented.
[2018-02-15] MEDS: MORPHINE SULFATE 4 MG/ML SYRINGE IV PRN (03:50)
[2018-02-15 07:03] LABS: Basophils % (A) 1 %; Eosinophils # (A) 0.1 k/uL (0-0.7); Eosinophils % (A) 1 %; HCT 40.9 % (39.0-53.0); HGB 13.4 gm/dL (13.0-17.5); Lymphocytes # (A) 0.7 k/uL (1.0-4.8); Lymphocytes % (A) 15 %; MCH 27.6 pg (25.0-35.0); MCHC 32.9 g/dL (31.0-37.0); MCV 83.8 fL (80.0-100.0); Mean Platelet Volume 8.1; Monocytes # (A) 0.2 k/uL (0-1.0); Monocytes % (A) 5 %; Neutrophils # (A) 3.4 k/uL (1.3-7.7); Neutrophils % (A) 77 %; Platelet Count 144 k/uL (150-450); RBC 4.88 m/uL (4.30-5.90); WBC 4.5 k/uL (3.8-10.6)
[2018-02-15] MEDS: PANTOPRAZOLE 40 MG TABLET PO SCH (07:07)
[2018-02-15] MEDS: LEVOTHYROXINE 137 MCG TAB PO SCH (07:07)
[2018-02-15 07:09] LABS: INR 1.4 (<1.2); Prothrombin Time 13.5 sec (9.0-12.0)
[2018-02-15 07:18] LABS: Anion Gap 9 mmol/L; Blood Urea Nitrogen 20 mg/dL (9-20); Calcium 9.3 mg/dL (8.4-10.2); Carbon Dioxide 27 mmol/L (22-30); Chloride 95 mmol/L (98-107); Glucose 99 mg/dL (74-99); Potassium 4.3 mmol/L (3.5-5.1); Sodium 131 mmol/L (137-145)
[2018-02-15] MEDS: amLODIPine 10 MG TAB PO SCH (08:43)
[2018-02-15] MEDS: FUROSEMIDE 40 MG TAB PO SCH (08:43)
[2018-02-15] MEDS: LORATADINE 10 MG TAB PO SCH (08:43)
[2018-02-15] MEDS: VALSARTAN 160 MG TAB PO SCH (08:43)
[2018-02-15] MEDS: levETIRAcetam 500 MG TAB PO SCH ×2 (08:43→20:59)
[2018-02-15] MEDS: KETOROLAC 30 MG/ML 1 ML VIAL IVP SCH ×2 (08:43→20:59)
--- NOTE | 2018-02-15 13:15 | PN ---
PROGRESS NOTE DATE OF SERVICE: 02/15/2018 This 82-year-old gentleman who was admitted with change in mental status, confusion, seizure, also had alcohol withdrawal symptoms. The patient also had severe hypomagnesemia corrected. The patient also had complaining of chest pain and back pain. A lumbar spine CT scan showed multilevel DJD. The patient is being closely monitored. No chest pain. No palpitations. PHYSICAL EXAM: Alert and oriented times three. Pulse 71, blood pressure 136/77, respiratory rate 20, temperature 97.2, pulse ox 94% on 2 L. HEENT is conjunctivae normal. Oral mucosa moist. Neck is no jugular. No carotid bruit. No lymph node enlargement. Cardiovascular: S1, S2. Respiratory: Breath sounds diminished in the bases. A few scattered rhonchi. No crackles. ABDOMEN: Soft, nontender. No mass palpable. Legs are no edema, no swelling. Central nervous system: No focal deficits. LABS: WBC 4.2, hemoglobin 13.9. Sodium is 131. ASSESSMENT: 1. New onset seizures, possibly alcohol withdrawal seizures. 2. Severe hypomagnesemia. 3. History of fall. 4. Back pain and possibly T8 compression fracture, age indeterminate. 5. Left base atelectasis. 6. History of atrial fibrillation. 7. History of coronary artery disease. 8. History of ETOH. 9. Possible withdrawal seizures. 10.Hypertension. 11.Hypothyroidism. 12.History of thyroid cancer. 13.History of MRSA. 14.History of pacemaker. 15.History of cardiac catheterization. 16.Remote history of nicotine dependence. 17.Elevated lactic acid, possibly secondary to seizures. RECOMMENDATION AND DISCUSSION: In this 82-year-old gentleman who presented with multiple complex medical issues , we will monitor the patient closely, continue the current management. Continue symptomatic treatment. Otherwise, at this time, I recommend PT/OT evaluation. Continue the rest of the home medications. Otherwise prognosis guarded. Further recommendations to follow. MMODL / IJN: [id number] / PAMELA
--- NOTE | 2018-02-15 17:52 | P.PN ---
Subjective Progress Note Date: 02/15/18 Principal diagnosis: seizure Neurology is following an 82-year-old male with new onset seizure. Patient complained of altered mental status, possible seizure and was confused in the emergency department. Patient became alert and oriented while in the ED. Patient did have complaints of thoracic and low back pain that were managed by activated sludge attendant. With regard to patient's altered mental status, patient has had an ongoing history intermittent but recurrent episodes of what appears to be petit mal seizure which have progressed to grand mal seizure with most recent occurrence. Patient has been having petit mal seizure like activity several times per week. Patient states he could feel the occurrence is pending prior to the actual event. On one occurrence, patient did have lateral release. Patient did report feeling fatigued after the event. again, nursing reports no seizure-like activity within the previous 24 hours. Patient denies any change in neurological status and functioning. On contact today for follow-up, patient was resting in bed, supine, no acute distress. patient is alert and oriented 3. Family was in the room. Objective - Vital Signs Vital signs: Vital Signs Temp 98.0 F 02/15/18 16:00 Pulse 72 02/15/18 16:00 Resp 18 02/15/18 16:00 BP 128/69 02/15/18 16:00 Pulse Ox 94 L 02/15/18 16:00 Intake & Output 02/14/18 02/15/18 02/15/18 18:59 06:59 18:59 Intake Total 790 330 240 Output Total 750 875 Balance 40 -545 240 Weight 73.4 kg Intake: Intake, IV Titration 380 Amount Magnesium Sulfate-D5w Pmx 100 1 gm In Dextrose/Water 1 100ml.bag @ 100 mls/hr IVPB Q1H [facility] [place] Rx#: [id number] Magnesium Sulfate-D5w Pmx 100 1 gm In Dextrose/Water 1 100ml.bag @ 100 mls/hr IVPB Q1H [facility] [place] Rx#: [id number] Sodium Chloride 0.9% 1, 180 000 ml @ 60 mls/hr IV . [id number] ONE with Mvi, Adult No.4 with Vit K 10 ml with Thiamine 100 mg with Folic Acid 1 mg Rx#: [id number] Oral 410 330 240 Output: Urine 750 875 Other: Voiding Method Urinal # Voids 0 0 - Exam General appearance: Alert & oriented x3, no apparent distress. Head: Atraumatic, normocephalic, normal inspection Eyes: Well appearance, PERRLA, EOMI. Absent scleral icterus, conjunctival injection, nystagmus, periorbital swelling. Ear, nose and throat: Normal exam, mucous membranes moist Neck: Normal inspection, absent tenderness, lymphadenopathy. Respiratory: No increased work of breathing Cardiovascular: Regular rate, rhythm GI/abdominal: No guarding Extremities: Full range of motion, normal capillary refill, no tenderness, pedal edema joint swelling, calf tenderness. Neurological: cranial nerves II through XII intact no lateralizing weakness no seizure activity noted on physical exam no pronator drift and no nystagmus. Left lower extremity: 5/5 Right lower extremity: 5/5 Left upper extremity: 5/5 Right upper extremity:5/5 Sensation: Left lower extremity: normal Right lower extremity: normal Left upper extremity: normal Right upper extremity:normal Psychological: Mood and Affect appropriate for setting - Labs CBC & Chem 7: 02/15/18 06:50 02/15/18 06:50 Labs: Abnormal Lab Results - Last 24 Hours (Table) 02/15/18 02/15/18 02/15/18 Range/Units 06:50 06:50 06:50 Plt Count 144 L (150-450) k/uL Lymphocytes # 0.7 L (1.0-4.8) k/uL PT 13.5 H (9.0-12.0) sec INR 1.4 H (<1.2) Sodium 131 L (137-145) mmol/L Chloride 95 L (98-107) mmol/L Assessment and Plan (1) New onset seizure Narrative/Plan: Although the patient has no prior history of seizure, it does appear that over the last 3-6 months, the patient has been having petit mal seizure activity on a consistent but intermittent basis. Patient notes that he was fatigued after occurrences within that timeframe as well as had personal perception of pending occurrence. It also appears that the patient has developed initial grand mal seizure just prior to presentation. Patient did have loss of bowel and bladder , was postictal with confusion and lethargy. After re-discussing the sequence of events, it does appear that the seizure preceded the fall and thus the injury was secondary to seizure. Patient reports no other neurological deficits and none were found on physical exam. Patient CT brain is as noted. Patient is tolerating medication well. Patient was started on IV Keppra 1000 mg and will be transitioned to 500 mg twice a day as the maintenance dose. Patient has remained asymptomatic since medication therapy was started. EEG taken. Patient returned to baseline from a neurological standpoint. It's any medication as noted outpatient. Current Visit: Yes Status: Acute Code(s): R56.9 - UNSPECIFIED CONVULSIONS SNOMED Code(s): 10509544 (2) Abrasion of scalp Narrative/Plan: Secondary to fall related seizure Current Visit: No Status: Acute Code(s): S00.01XA - ABRASION OF SCALP, INITIAL ENCOUNTER SNOMED Code(s): 726085168 (3) Fall at home Narrative/Plan: as noted above Current Visit: No Status: Acute Code(s): W19.XXXA - UNSPECIFIED FALL, INITIAL ENCOUNTER; Y92.009 - UNSP PLACE IN UNSP NON-INSTITUT (PRIVATE) RESIDENCE PLACE SNOMED Code(s): 28012504 Plan: STATUS: neurology will clear the patient from a neurological standpoint. Patient to follow-up in the office within 10-14 days. I have discussed the plan of care with the physician prior to implementation and he agrees with the plan as implemented.
[2018-02-15] MEDS ORDERED: WARFARIN 2.5 MG TAB PO SCH (18:00)
[2018-02-15 20:58] VITALS: RESP 16
[2018-02-15] MEDS: TAMSULOSIN 0.4 MG CAP.ER.24H PO SCH (20:59)
[2018-02-15] MEDS: MELATONIN 3 MG TABLET PO SCH (20:59)
[2018-02-15] MEDS: ALLOPURINOL 100 MG TAB PO SCH (20:59)
[2018-02-16] MEDS: LEVOTHYROXINE 137 MCG TAB PO SCH (07:04)
[2018-02-16] MEDS: PANTOPRAZOLE 40 MG TABLET PO SCH (07:04)
[2018-02-16 07:18] LABS: Basophils % (A) 0 %; Eosinophils % (A) 0 %; HCT 41.9 % (39.0-53.0); HGB 13.5 gm/dL (13.0-17.5); Lymphocytes # (A) 0.7 k/uL (1.0-4.8); Lymphocytes % (A) 13 %; MCH 27.1 pg (25.0-35.0); MCHC 32.2 g/dL (31.0-37.0); MCV 84.4 fL (80.0-100.0); Mean Platelet Volume 7.2; Monocytes # (A) 0.4 k/uL (0-1.0); Monocytes % (A) 7 %; Neutrophils # (A) 3.9 k/uL (1.3-7.7); Neutrophils % (A) 78 %; Platelet Count 148 k/uL (150-450); RBC 4.97 m/uL (4.30-5.90); RDW 14.1 % (11.5-15.5); WBC 5.1 k/uL (3.8-10.6)
[2018-02-16 07:23] LABS: INR 1.5 (<1.2); Prothrombin Time 14.2 sec (9.0-12.0)
[2018-02-16 07:30] LABS: Calcium 9.2 mg/dL (8.4-10.2); Potassium 4.5 mmol/L (3.5-5.1)
[2018-02-16] MEDS: amLODIPine 10 MG TAB PO SCH (09:12)
[2018-02-16] MEDS: levETIRAcetam 500 MG TAB PO SCH (09:13)
[2018-02-16] MEDS: LORATADINE 10 MG TAB PO SCH (09:13)
[2018-02-16] MEDS: VALSARTAN 160 MG TAB PO SCH (09:13)
[2018-02-16] MEDS: FUROSEMIDE 40 MG TAB PO SCH (09:13)
[2018-02-16] MEDS: KETOROLAC 30 MG/ML 1 ML VIAL IVP SCH (09:22)
[2018-02-16] MEDS: HYDROcodone/APAP 5-325MG 1 EACH TAB PO PRN (09:25)
[2018-02-16 13:07] VITALS: BP 138/85; PULSE 80; TEMP 98
--- NOTE | 2018-02-16 13:22 | CDI ---
Last Revision, June 2017 Documentation Clarification Form Date: 02/16/18 1320 From: Rhonda Moe RN, CCDS Admit Date: 02/13/2018 2:31:00 PM Patient Name: Wily Chacko Visit Number: [id number] ATTENTION: The Clinical Documentation Specialists (CDI) and [facility] Coding Staff appreciate your assistance in clarifying documentation. Please respond to the clarification below the line at the bottom and electronically sign. The CDI & [facility] Coding staff will review the response and follow-up if needed. Please note: Queries are made part of the Legal Health Record. If you have any questions, please contact the author of this message via ITS. Dr. Sarwat Negro Atrial fibrillation is documented in the is documented in the PMH of the H&P and progress notes and requires further specificity History/Risk Factors: Atrial fibrillation, Htn. CAD, hypothyroid Clinical Indicators: EKG/telemetry: V paced Treatment: Coumadin 2.5 mg PO QD In your professional opinion, can you please clarify the type of atrial fibrillation, if known? Chronic/Permanent Paroxysmal Persistent Other, please specify Unable to determine Please continue to document in your progress notes and discharge summary in order to capture severity of illness and risk of mortality. Include clinical findings that support your diagnosis. Unable to determine MTDD
--- NOTE | 2018-02-16 15:25 | DS ---
DISCHARGE SUMMARY DATE OF SERVICE: 02/16/2018 FINAL DIAGNOSES: 1. 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 2. Severe hypomagnesemia. 3. History of fall. 4. Back pain, possibly T8 compression fracture, age indeterminate. 5. Significant lumbar degenerative joint disease. 6. Left base atelectasis. 7. History of atrial fibrillation. 8. History of congestive heart failure. 9. HISTORY of EtOH. 10.Hypertension. 11.Hypothyroidism. 12.History of thyroid cancer. 13.History of MRSA. 14.History of pacemaker. 15.History of cardiac catheterization. 16.Remote history of nicotine dependence. 17.Elevated lactic acid, possibly secondary to seizures. DISCHARGE DISPOSITION: The patient will be discharged in stable condition with guarded prognosis. Total time taken 35 minutes. HISTORY OF PRESENT ILLNESS: This 82-year-old gentleman with a past medical history of multiple medical problems was admitted with seizures. Treated symptomatically. Alcohol-withdrawal seizures was considered. The patient also complaining of back pain. Fracture was suspected but DJD was confirmed. The patient was also seen by multiple consultants including Neurology and the patient improved significantly. On exam, vitals are stable. CARDIOVASCULAR: S1, S2. ABDOMEN: Soft. NERVOUS SYSTEM: No focal deficits. The patient is recommended no alcohol and no driving for 6 months and attend AA. DISCHARGE MEDICATIONS: 1. Zyloprim 100 mg q.h.s. 2. Exforge 1 p.o. daily. 3. Zyrtec 10 mg daily. 4. Lasix 40 mg daily. 5. Synthroid 137 mcg p.o. daily. 6. Naprosyn 500 mg b.i.d. p.r.n. 7. Omeprazole 20 mg. 8. Flomax 0.4 q.h.s. 9. Coumadin 2.5 mg daily. 10.Tylenol 650 q.6h p.r.n. 11.Folic acid 1 mg daily. 12.Keppra 500 mg p.o. b.i.d. 13.Multivitamins 1 p.o. daily. 14.Thiamine 100 mg p.o. daily. Follow up with Dr. Fox with CBC, BMP, PT/INR and follow up with Neurology as advised. Once again, the patient is being discharged in stable condition with guarded prognosis. MMODL / IJN: [id number] /
--- NOTE | 2018-02-16 18:49 | EEG ---
ELECTROENCEPHALOGRAM REPORT DATE OF SERVICE: 02/16/2018. REASON FOR TESTING: Seizure. ANTIEPILEPTIC SEIZURE MEDICATION: Keppra. DESCRIPTION OF THE PROCEDURE: This EEG was performed using a 21 channel digital electroencephalograph, following international 10-20 system. DESCRIPTION OF THE RECORDING: From the beginning of the tracing, with patient's eyes closed, the background rhythm was mostly consisting of 7 Hz theta frequency in the posterior occipital leads. No obvious asymmetry is seen. Frequent movement and muscle artifacts are seen throughout the tracing. Photic stimulation was performed with a minimal driving response seen. No pathological waves were elicited. Hyperventilation was not performed. The patient remains awake throughout the tracing. No epileptiform discharges were seen. His EKG lead showed an irregularly irregular rhythm with a normal rate. INTERPRETATION: This awake EEG is limited due to the frequency of movement and muscle artifacts. There was evidence of mild encephalopathy with no epileptiform discharges seen. Of note, his EKG lead showed an irregularly irregular rhythm with a normal rate. Clinical correlation is recommended. MMDANTE / DUTCHN: [id number] /
== END 2018-02-16 16:24 | disposition home or self-care (01) | DRG 101 ==
LOC: EC 10:36 → 6SEL 14:31
PROVIDERS: ADMIT Hospitalist; ATTEND Hospitalist
DX: G40.409 Other generalized epilepsy and epileptic syndromes, not intractable, without status epilepticus (principal); F10.231 Alcohol dependence with withdrawal delirium; J98.11 Atelectasis; M48.54XA Collapsed vertebra, not elsewhere classified, thoracic region, initial encounter for fracture; E87.2 Acidosis; I11.0 Hypertensive heart disease with heart failure; I25.10 Atherosclerotic heart disease of native coronary artery without angina pectoris; I48.91 Unspecified atrial fibrillation; I50.9 Heart failure, unspecified; M51.36 Other intervertebral disc degeneration, lumbar region; S00.01XA Abrasion of scalp, initial encounter; W19.XXXA Unspecified fall, initial encounter; Y92.009 Unspecified place in unspecified non-institutional (private) residence as the place of occurrence of the external cause; E78.5 Hyperlipidemia, unspecified; E83.42 Hypomagnesemia; E89.0 Postprocedural hypothyroidism; Z79.01 Long term (current) use of anticoagulants; Z79.899 Other long term (current) drug therapy; Z82.49 Family history of ischemic heart disease and other diseases of the circulatory system; Z83.3 Family history of diabetes mellitus; Z85.850 Personal history of malignant neoplasm of thyroid; Z86.14 Personal history of Methicillin resistant Staphylococcus aureus infection; Z87.891 Personal history of nicotine dependence; Z95.0 Presence of cardiac pacemaker; Z91.81 History of falling; Z79.890 Hormone replacement therapy
CPT/HCPCS: 36415; 70450; 71046; 72070; 72131; 80048; 80053; 80306; 81003; 82550; 82553; 82803; 83605; 83735; 84484; 85025; 85610; 85730; 93005; 95816; 96361; 96365; 96375; 96376; 99285

== ENCOUNTER 2018-02-22 08:22 | Inpatient (IN) | payer MEDICARE ==
[2018-02-22] MEDS ORDERED: SODIUM CHLORIDE 0.9% 500 ML IV ONE (08:24)
--- NOTE | 2018-02-22 08:36 | ED ---
General Adult HPI - General Stated complaint: altered mental status Time Seen by Provider: 02/22/18 08:24 Source: patient, RN notes reviewed, old records reviewed - History of Present Illness Initial comments: 82 yo male presenting from home with confusion and lethargy. EMS was called by patient's family members. Patient was found to be quite hypotensive with systolic blood pressure in the 50s. He is pale and diaphoretic. Patient had no complaints according to EMS with the exception of some back pain which she has been dealing with for the past several weeks secondary to fractured thoracic vertebrae. Patient had recent admission to hospital with new onset and recurrent seizure. Patient denies any chest pain, denies abdominal pain. States he has had some diarrhea which is been present for the past several days and is improving. No vomiting. He does report subjective fever and chills. History limited secondary to patient's condition. - Related Data Home Medications Medication Instructions Recorded Confirmed Allopurinol [Zyloprim] 100 mg PO HS 02/08/18 02/13/18 Cetirizine HCl [Zyrtec] 10 mg PO DAILY 02/08/18 02/13/18 Furosemide [Lasix] 40 mg PO DAILY 02/08/18 02/13/18 Levothyroxine Sodium [Synthroid] 137 mcg PO DAILY 02/08/18 02/13/18 Omeprazole 20 mg PO DAILY 02/08/18 02/13/18 Tamsulosin HCl [Flomax] 0.4 mg PO HS 02/08/18 02/13/18 Warfarin [Coumadin] 2.5 mg PO DAILY 02/08/18 02/13/18 amLODIPine/VALSARTAN [Exforge 1 tab PO DAILY 02/08/18 02/13/18 10-160 mg Tablet] Naproxen [Naprosyn] 500 mg PO Q12HR PRN 02/13/18 02/13/18 Previous Rx's Medication Instructions Recorded Acetaminophen Tab [Tylenol] 650 mg PO Q6HR PRN tab 02/16/18 Folic Acid 1 mg PO DAILY #30 tablet 02/16/18 Multivitamins, Thera [Multivitamin] 1 tab PO DAILY #30 tablet 02/16/18 Thiamine [Vitamin B-1] 100 mg PO DAILY #30 tablet 02/16/18 levETIRAcetam [Keppra] 500 mg PO Q12HR #60 tab 02/16/18 Allergies Allergy/AdvReac Type Severity Reaction Status Date / Time No Known Allergies Allergy Verified 02/13/18 11:00 Review of Systems ROS Statement: Those systems with pertinent positive or pertinent negative responses have been documented in the HPI. ROS Other: All systems not noted in ROS Statement are negative. Past Medical History Past Medical History: Atrial Fibrillation, Coronary Artery Disease (CAD), Hypertension, Thyroid Disorder Additional Past Medical History / Comment(s): thyroid cancer History of Any Multi-Drug Resistant Organisms: MRSA Date of last positivie culture/infection: 2001 MDRO Source:: abd Past Surgical History: Heart Catheterization, Pacemaker Additional Past Surgical History / Comment(s): stomach surgery, thyroidectomy, sinus surgery Past Anesthesia/Blood Transfusion Reactions: No Reported Reaction Type of Cardiac Device: Unknown Device Placement Date:: October 2015 Past Psychological History: No Psychological Hx Reported Smoking Status: Former smoker Past Alcohol Use History: Daily Additional Past Alcohol Use History / Comment(s): 2-3 beers daily, not drinking recently due to being sick-last drink one week ago Past Drug Use History: None Reported - Past Family History Father Family Medical History: Myocardial Infarction ([place]) Sister(s) Family Medical History: Cancer Additional Family Medical History / Comment(s): Thyroid Mother Family Medical History: Diabetes Mellitus General Exam General appearance: lethargic Head exam: Present: atraumatic, normocephalic Eye exam: Present: normal appearance, PERRL ENT exam: Present: mucous membranes dry Neck exam: Present: normal inspection Respiratory exam: Present: normal lung sounds bilaterally, wheezes, decreased breath sounds. Absent: respiratory distress Cardiovascular Exam: Present: regular rate, normal rhythm GI/Abdominal exam: Present: soft. Absent: distended, tenderness, guarding Extremities exam: Absent: normal capillary refill (Refill 3-4 seconds), pedal edema Neurological exam: Present: alert, oriented X3, CN II-XII intact. Absent: motor sensory deficit Skin exam: Present: cyanosis, diaphoretic. Absent: warm (cool) Course Vital Signs 02/22/18 02/22/18 02/22/18 08:26 08:33 08:56 Pulse Rate 73 64 Respiratory 25 H 28 H 26 H Rate Blood Pressure 73/45 92/54 O2 Sat by Pulse 98 Oximetry 02/22/18 02/22/1818 09:11 09:20 10:00 Pulse Rate 65 60 60 Respiratory 26 H 18 Rate Blood Pressure 85/41 89/51 O2 Sat by Pulse 98 96 Oximetry 02/22/18 02/22/18 10:16 10:25 Pulse Rate 63 61 Respiratory 28 H Rate Blood Pressure 96/61 O2 Sat by Pulse 97 Oximetry EKG Findings - EKG Comments: EKG Findings:: EKG: Paced rhythm rate of 75, QRS duration 144, QTC 219 Medical Decision Making - Medical Decision Making 82-year-old male presents in extremis, hypotensive, tachypneic, and diaphoretic. Patient clinically appears dehydrated on exam. EKG is obtained, this shows paced rhythm. Chest x-ray shows cardiomegaly and chronic elevation left hemidiaphragm. CT of the brain is obtained for his confusion and lethargy , this negative for any acute intracranial process. CT the abdomen is obtained , this shows elevation left hemidiaphragm as well as a distal small bowel obstruction. Patient is not clinically presenting as a small bowel instruction , he has had some diarrhea according to family and no reported vomiting. However this is discussed with general surgery correctional case records supervisor Dr. Scott. Laboratory studies reveal normal white blood cell count, stable hemoglobin, there is hyponatremia 129, elevated potassium 5.5, CO2 is significantly low at 9 creatinine is 5.6 which is new from baseline of 1. There is an INR of greater than 10 with no signs of active bleeding. Lactic acid of 4. This collectively represents severe metabolic derangement. Patient is bolused in the emergency department, he is given calcium chloride, sodium bicarb and dextrose. He started on bicarb drip, after discussion with nephrology, Dr. Patel. Case is also discussed with pulmonary manufactured buildings repairer Dr. Foss. Patient will be admitted to the ICU for further management. - Lab Data Result diagrams: 02/22/18 08:42 02/22/18 08:42 Lab Results 02/22/18 02/22/18 02/22/18 Range/Units 08:33 08:42 08:42 WBC 5.9 (3.8-10.6) k/uL RBC 4.69 (4.30-5.90) m/uL Hgb 13.2 (13.0-17.5) gm/dL Hct 41.3 (39.0-53.0) % MCV 88.0 (80.0-100.0) fL MCH 28.1 (25.0-35.0) pg MCHC 32.0 (31.0-37.0) g/dL RDW 15.0 (11.5-15.5) % Plt Count 202 (150-450) k/uL Neutrophils % (Manual) 74 % Band Neutrophils % 1 % Lymphocytes % (Manual) 7 % Monocytes % (Manual) 17 % Eosinophils % (Manual) 1 % Neutrophils # (Manual) 4.40 (1.3-7.7) k/uL Lymphocytes # (Manual) 0.41 L (1.0-4.8) k/uL Monocytes # (Manual) 1.00 (0-1.0) k/uL Eosinophils # (Manual) 0.06 (0-0.7) k/uL Nucleated RBCs 0 (0-0) /100 WBC Hypochromasia Slight Poikilocytosis (manual Present PT (9.0-12.0) sec INR (<1.2) APTT (22.0-30.0) sec Sodium (137-145) mmol/L Potassium (3.5-5.1) mmol/L Chloride (98-107) mmol/L Carbon Dioxide (22-30) mmol/L Anion Gap mmol/L BUN (9-20) mg/dL Creatinine (0.66-1.25) mg/dL Est GFR (CKD-EPI)AfAm (>60 ml/min/1.73 sqM) Est GFR (CKD-EPI)NonAf (>60 ml/min/1.73 sqM) Glucose (74-99) mg/dL POC Glucose (mg/dL) 75 (75-99) mg/dL POC Glu Copy Worker ID Jason Engle Plasma Lactic Acid Chucho (0.7-2.0) mmol/L Calcium (8.4-10.2) mg/dL Total Bilirubin (0.2-1.3) mg/dL AST (17-59) U/L ALT (21-72) U/L Alkaline Phosphatase (38-126) U/L Total Creatine Kinase 2253 H (55-170) U/L CK-MB (CK-2) 34.0 H* (0.0-2.4) ng/mL CK-MB (CK-2) Rel Index Troponin I <0.012 (0.000-0.034) ng/mL Total Protein (6.3-8.2) g/dL Albumin (3.5-5.0) g/dL 02/22/18 02/22/18 02/22/18 Range/Units 08:42 08:44 08:44 WBC (3.8-10.6) k/uL RBC (4.30-5.90) m/uL Hgb (13.0-17.5) gm/dL Hct (39.0-53.0) % MCV (80.0-100.0) fL MCH (25.0-35.0) pg MCHC (31.0-37.0) g/dL RDW (11.5-15.5) % Plt Count (150-450) k/uL Neutrophils % (Manual) % Band Neutrophils % % Lymphocytes % (Manual) % Monocytes % (Manual) % Eosinophils % (Manual) % Neutrophils # (Manual) (1.3-7.7) k/uL Lymphocytes # (Manual) (1.0-4.8) k/uL Monocytes # (Manual) (0-1.0) k/uL Eosinophils # (Manual) (0-0.7) k/uL Nucleated RBCs (0-0) /100 WBC Hypochromasia Poikilocytosis (manual PT >130.0 H (9.0-12.0) sec INR >10.0 H* (<1.2) APTT 111.7 H* (22.0-30.0) sec Sodium 129 L (137-145) mmol/L Potassium 5.5 H (3.5-5.1) mmol/L Chloride 95 L (98-107) mmol/L Carbon Dioxide 7 L* (22-30) mmol/L Anion Gap 27 mmol/L BUN 143 H* (9-20) mg/dL Creatinine 5.64 H* (0.66-1.25) mg/dL Est GFR (CKD-EPI)AfAm 10 (>60 ml/min/1.73 sqM) Est GFR (CKD-EPI)NonAf 9 (>60 ml/min/1.73 sqM) Glucose 61 L (74-99) mg/dL POC Glucose (mg/dL) (75-99) mg/dL POC Glu Copy Worker ID Plasma Lactic Acid Chucho 4.0 H* (0.7-2.0) mmol/L Calcium 6.6 L (8.4-10.2) mg/dL Total Bilirubin 1.2 (0.2-1.3) mg/dL AST 61 H (17-59) U/L ALT 34 (21-72) U/L Alkaline Phosphatase 63 (38-126) U/L Total Creatine Kinase (55-170) U/L CK-MB (CK-2) (0.0-2.4) ng/mL CK-MB (CK-2) Rel Index Troponin I (0.000-0.034) ng/mL Total Protein 5.9 L (6.3-8.2) g/dL Albumin 3.0 L (3.5-5.0) g/dL Critical Care Time Critical Care Time: Yes Total Critical Care Time: 95 Disposition Clinical Impression: Hyponatremia, Dehydration, Acute renal failure, Hyperkalemia, Lactic acid acidosis Disposition: ADMITTED IP TO THIS [facility] Condition: Serious Is patient prescribed a controlled substance at d/c from ED?: No Referrals: Delfino Fox DO [Primary Care Provider] - 1-2 days Decision to Admit Reason: Admit from EC Decision Date: 02/22/18 Decision Time: 10:41
[2018-02-22 08:45] LABS: Glucose,Whole Blood 75 mg/dL (75-99)
[2018-02-22 09:02] LABS: HCT 41.3 % (39.0-53.0); HGB 13.2 gm/dL (13.0-17.5); Hypochromasia Slight; MCH 28.1 pg (25.0-35.0); Mean Platelet Volume 7.7; Platelet Count 202 k/uL (150-450); RBC 4.69 m/uL (4.30-5.90); WBC 5.9 k/uL (3.8-10.6)
[2018-02-22 09:13] LABS: Calcium 6.6 mg/dL (8.4-10.2); Potassium 5.5 mmol/L (3.5-5.1); Total Bilirubin 1.2 mg/dL (0.2-1.3); Total Protein 5.9 g/dL (6.3-8.2)
[2018-02-22 09:17] LABS: Band Neutrophils % 1 %; Eosinophils # (M) 0.06 k/uL (0-0.7); Lymphocytes # (M) 0.41 k/uL (1.0-4.8); Neutrophils % (M) 74 %; Nucleated Red Blood Cells 0 /100 WBC (0-0); Poikilocytosis (M) Present; Total Cells Counted 100
[2018-02-22 09:27] LABS: Troponin I <0.012 ng/mL (0.000-0.034)
[2018-02-22] MEDS ORDERED: DEXTROSE 50%-WATER 50 ML SYRINGE IVP ONE (09:27)
[2018-02-22] MEDS ORDERED: SODIUM CHLORIDE 0.9% 1,000 ML IV ONE ×4 (09:27→23:29)
[2018-02-22] MEDS ORDERED: ALBUTEROL NEB (CONC) 2.5 MG/0.5 ML INHALATION ONE (09:27)
[2018-02-22] MEDS ORDERED: SODIUM BICARB 8.4% 50 ML SYR (1 MEQ/ML) IV ONE ×2 (09:27→17:33)
[2018-02-22] MEDS ORDERED: CALCIUM CHLORIDE 1,000 MG in SODIUM CHLORIDE 0.9% 100 ML IV ONE (09:27)
[2018-02-22] MEDS ORDERED: ALBUTEROL NEBULIZED 2.5 MG/3 ML INHALATION STA (09:29)
[2018-02-22 09:31] LABS: Creatine Kinase 2253 U/L (55-170)
[2018-02-22] MEDS ORDERED: DEXTROSE 5%-0.9% NACL 1,000 ML IV SCH (09:45)
[2018-02-22 09:46] LABS: Prothrombin Time >130.0 sec (9.0-12.0)
[2018-02-22 09:47] LABS: INR >10.0 (<1.2); Partial Thromboplastin Time 111.7 sec (22.0-30.0)
--- NOTE | 2018-02-22 10:16 | CT ---
EXAMINATION TYPE: CT brain wo con DATE OF EXAM: 02/22/2018 COMPARISON: Previous study dated 02/13/2018 HISTORY: Altered mental status CT DLP: 2345.26 mGycm Automated exposure control for dose reduction was used. FINDINGS: There are generalized changes of sulcal prominence and ventriculomegaly, compatible with mild atrophy . There is diffuse periventricular white matter lucency, compatible with chronic white matter ischemi c change. There is no acute focal lesion, mass effect or midline shift identified. I do not see evide nce of intracranial blood. There is chronic mucoperiosteal disease involving the right maxillary and left maxillary sinuses. The mastoid air cells are clear. The bony calvarium is intact. IMPRESSION: 1. NO ACUTE INTRACRANIAL ABNORMALITY. 2. DEGENERATIVE CHANGE. 3. CHRONIC, BILATERAL MAXILLARY SINUS MUCOSAL DISEASE.
--- NOTE | 2018-02-22 10:22 | CT ---
EXAMINATION TYPE: CT abdomen pelvis wo con DATE OF EXAM: 02/22/2018 COMPARISON: NONE HISTORY: Lethargic , hypotensive, altered mental status CT DLP: 1205.02 mGycm Automated exposure control for dose reduction was used. FINDINGS: There is marked elevation of left hemidiaphragm. The stomach and part of the colon are with in the chest. There is basilar atelectasis present bilaterally. The heart is enlarged. There is a bipolar pacemaker in place. There is no pericardial fluid. There is a scant right-sided pleural effusion. Within the abdomen, the gallbladder is been removed. Liver and spleen are unremarkable. Both adrenal glands appear unremarkable. There is no evidence of hydronephrosis or nephrolithiasis. Very Limited views of the pancreas are unremarkable. There is extensive atheromatous calcification of the visualized arterial tree. There is a direct inguinal hernia on the left. The bladder is peaking into this. The bladder is diste nded. The colon is largely collapsed. There is a distal small bowel obstruction without a definite transition point. The small bowel is flu id-filled with multiple air-fluid levels. No free air is seen. No significant free fluid is seen. There is hypertrophic spondylosis and degenerative disc disease as well as facet arthropathy within t he lumbar spine. IMPRESSION: #1 DISTAL SMALL BOWEL OBSTRUCTION. 2. MARKED ELEVATION LEFT HEMIDIAPHRAGM. 3. CARDIOMEGALY. 4. SCANT RIGHT-SIDED PLEURAL EFFUSION. 5. DIRECT INGUINAL HERNIA ON THE LEFT WITH BLADDER PEAKING INTO IT. 6. DEGENERATIVE CHANGES WITHIN THE SPINE.
--- NOTE | 2018-02-22 10:31 | XR ---
EXAMINATION TYPE: XR chest 1V portable DATE OF EXAM: 02/22/2018 HISTORY: altered mental status. REFERENCE: Previous study dated 02/13/2018. FINDINGS: There is a bipolar pacing device in place on the left. There is elevation of the left hemidiaphragm. The heart is enlarged. Lungs appear clear. Pleural spaces are clear. IMPRESSION: CARDIOMEGALY.
[2018-02-22] MEDS ORDERED: NALOXONE 0.4 MG/ML 1 ML VIAL IV PRN (10:33)
[2018-02-22] MEDS ORDERED: ACETAMINOPHEN TAB 325 MG TAB PO PRN (10:33)
[2018-02-22] MEDS: DEXTROSE 5% IN WATER 1,000 ML with SODIUM BICARB (1 MEQ/ML) 150 ML IV SCH ×2 (10:44→22:55)
[2018-02-22 10:46] LABS: ABG Base Excess -22.3 mmol/L; ABG PCO2 33 mmHg (35-45); ABG PO2 152 mmHg (83-108); ABG TCO2 10 mmol/L (19-24)
[2018-02-22 10:52] LABS: ABG HCO3 9 mmol/L (21-25); ABG PH 7.02 (7.35-7.45)
[2018-02-22 10:52] LABS: Appearance,Urine Cloudy (Clear); Bacteria,Urine Rare /hpf; Bilirubin,Urine Negative (Negative); Blood,Urine Trace (Negative); Color,Urine Yellow; Glucose,Urine (UA) Negative (Negative); Hyaline Casts,Urine 1 /lpf (0-2); Ketones,Urine Negative (Negative); Leukocyte Esterase,Urine Trace (Negative); Mucus,Urine Rare /hpf; Nitrite,Urine Negative (Negative); Protein,Urine Trace (Negative); RBC,Urine 10 /hpf (0-5); Specific Gravity,Urine 1.019 (1.001-1.035); Urobilinogen,Urine <2.0 mg/dL (<2.0); WBC,Urine 22 /hpf (0-5)
[2018-02-22] MEDS ORDERED: PHYTONADIONE 5 MG in SODIUM CHLORIDE 0.9% 50 ML IVPB STA (11:31)
[2018-02-22] MEDS: HYDROmorphone 1 MG/ML 1 ML SYRINGE IVP PRN ×2 (11:44→13:57)
[2018-02-22 12:38] LABS: HCT 35.1 % (39.0-53.0); Hypochromasia Moderate; MCH 27.8 pg (25.0-35.0); MCHC 31.4 g/dL (31.0-37.0); MCV 88.7 fL (80.0-100.0); Mean Platelet Volume 8.5; Platelet Count 158 k/uL (150-450); RBC 3.96 m/uL (4.30-5.90); WBC 4.8 k/uL (3.8-10.6)
--- NOTE | 2018-02-22 12:41 | P.CNPUL ---
History of Present Illness Consult date: 02/22/18 Chief complaint: Generalized weakness, lethargy, diarrhea, acute renal failure History of present illness: 82-year-old male patient who comes into the MRSA problem with confusion and lethargy and weakness. He was hypotensive with a systolic blood pressure in the mid 50s. His cardiac rhythm was paced at the rate of 60. He was awake. Apparently this patient has been having diarrhea for the past 3-4 days. His oral intake was minimal and he was unable to keep up with his oral intake. As such his condition progressively got worse. No nausea. No emesis. No reported fever or chills. He had a recent fall and he had injured his back and he was taking Naprosyn for pain control. His blood work was significantly abnormal. First of all, the patient a creatinine of 5.6 consistent with acute kidney injury knowing that his renal function was within normal limits. Sodium level was 129. Potassium level was 5.5. The patient had a serum bicarb level of 7 and there is a component of anion gap metabolic acidosis. His sugar was 61. He also had Coumadin toxicity with an INR of more than 10. Based on his ongoing diarrhea, a CAT scan of the abdomen and pelvis was done that showed marked elevation of the left hemidiaphragm which is probably chronic. There is questionable evidence of distal small bowel obstruction. His cardiac megaly. There is a small right-sided pleural effusion. There is a direct inguinal hernia and degenerative changes involving the lumbar spine. This patient was hospitalized recently. Note that he was doing well and his initial problem started after he had a blunt trauma to his head for which she came to the emergency department on 02/08/2018. At that time the workup was done including a CAT scan of the head and cervical spine and the findings were negative and the patient was discharged home. Around 5 days later, the patient came into the hospital because of suspected seizure. EEG was done and it showed no evidence of any acute seizure however there was a component of mild encephalopathy. The patient was seen by neurology. The patient was started on Keppra. He was discharged home. Note that he was also complaining of back pain and a CAT scan of the lumbosacral spine was done that showed no evidence of any acute fracture or malalignment of the lumbar spine. There was evidence of compression deformity seen on previous x-ray from 2017. There was multilevel moderate degenerative disc disease with variable degrees of foraminal narrowing and a mild component of spinal canal stenosis L4-L5. The patient as such was taken nonsteroidal anti-from either medication for pain. No ongoing seizure activity since his discharge from the hospital. For now, the patient is in the emergency department. He has already received a 3 L of fluid in the form of normal saline. He is started on a bicarb drip. I give additional 1 L and his blood pressure came up to 98 systolic. He has a Jarvis catheter. Is producing urine output and he is producing around 200 mL. His urine output is nonbloody. Note that he has a CPK that was measured at 2253. Troponins are negative. Urinalysis showed 22 wbc's, 10 rbc's, and trace protein. The blood gas showed severe acidosis which is essentially metabolic with a pH of 7.02 with a pCO2 of 33 and pO2 152. His lactic acid level is at 4.0. Review of Systems ROS unobtainable: due to mental status Constitutional: Reports fatigue, Reports weakness, Reports weight loss Eyes: denies blurred vision, denies bulging eye, denies decreased vision Ears: deny: decreased hearing, ear discharge, earache Cardiovascular: Reports dyspnea on exertion Respiratory: Reports dyspnea Gastrointestinal: Reports diarrhea Genitourinary: Reports as per HPI Musculoskeletal: Reports gait dysfunction, Reports loss of height, Reports low back pain Musculoskeletal: absent: ankle pain, ankle stiffness, ankle swelling Integumentary: Denies pruritus, Denies rash Neurological: Reports change in mentation, Reports weakness Endocrine: Reports fatigue Hematologic/Lymphatic: Reports as per HPI Allergic/Immunologic: Reports as per HPI Past Medical History Past Medical History: Atrial Fibrillation, Coronary Artery Disease (CAD), Hypertension, Thyroid Disorder Additional Past Medical History / Comment(s): Head trauma, new onset seizures, history of falls, coronary artery disease, congestion heart failure, chronic atrial fibrillation, hypothyroidism, pacemaker insertion, history of thyroid cancer, back pain with T8 compression fracture and mild lumbar spinal stenosis L4-L5 and severe degenerative changes involving the lumbar spine, long-term anticoagulation with warfarin History of Any Multi-Drug Resistant Organisms: MRSA Date of last positivie culture/infection: 2001 MDRO Source:: abd Past Surgical History: Heart Catheterization, Pacemaker Additional Past Surgical History / Comment(s): stomach surgery, thyroidectomy, sinus surgery Past Anesthesia/Blood Transfusion Reactions: No Reported Reaction Type of Cardiac Device: Unknown Device Placement Date:: October 2015 Past Psychological History: No Psychological Hx Reported Smoking Status: Former smoker Past Alcohol Use History: Daily Additional Past Alcohol Use History / Comment(s): 2-3 beers daily, not drinking recently due to being sick-last drink one week ago Past Drug Use History: None Reported - Past Family History Father Family Medical History: Myocardial Infarction ([place]) Sister(s) Family Medical History: Cancer Additional Family Medical History / Comment(s): Thyroid Mother Family Medical History: Diabetes Mellitus Medications and Allergies Home Medications Medication Instructions Recorded Confirmed Type Allopurinol [Zyloprim] 100 mg PO HS 02/08/18 02/22/18 History Cetirizine HCl [Zyrtec] 10 mg PO DAILY 02/08/18 02/22/18 History Furosemide [Lasix] 40 mg PO DAILY 02/08/18 02/22/18 History Levothyroxine Sodium [Synthroid] 137 mcg PO DAILY 02/08/18 02/22/18 History Omeprazole 20 mg PO DAILY 02/08/18 02/22/18 History Tamsulosin HCl [Flomax] 0.4 mg PO HS 02/08/18 02/22/18 History Warfarin [Coumadin] 2.5 mg PO DAILY 02/08/18 02/22/18 History amLODIPine/VALSARTAN [Exforge 1 tab PO DAILY 02/08/18 02/22/18 History 10-160 mg Tablet] Naproxen [Naprosyn] 500 mg PO Q12HR PRN 02/13/18 02/22/18 History Acetaminophen Tab [Tylenol] 650 mg PO Q6HR PRN tab 02/16/18 02/22/18 Rx Folic Acid 1 mg PO DAILY #30 tablet 02/16/18 02/22/18 Rx Multivitamins, Thera [Multivitamin] 1 tab PO DAILY #30 tablet 02/16/18 02/22/18 Rx Thiamine [Vitamin B-1] 100 mg PO DAILY #30 tablet 02/16/18 02/22/18 Rx levETIRAcetam [Keppra] 500 mg PO Q12HR #60 tab 02/16/18 02/22/18 Rx HYDROcodone/APAP 5-325MG [[place] 1 tab PO Q8H PRN 02/22/18 02/22/18 History 5-325] Allergies Allergy/AdvReac Type Severity Reaction Status Date / Time No Known Allergies Allergy Verified 02/22/18 10:41 Physical Exam Vitals: Vital Signs Temp Pulse Resp BP Pulse Ox 02/22/18 12:25 62 26 H 92/53 96 02/22/18 11:45 96.9 F L 66 18 98/45 98 02/22/18 11:20 68 26 H 99/52 98 02/22/18 10:25 61 28 H 96/61 97 02/22/18 10:16 63 02/22/18 10:00 60 02/22/18 09:20 60 18 89/51 96 02/22/18 09:11 65 26 H 85/41 98 02/22/18 08:56 64 26 H 92/54 98 02/22/18 08:33 28 H 02/22/18 08:26 73 25 H 73/45 Intake and Output 02/21/18 02/22/18 02/22/18 22:59 06:59 14:59 Output Total 200 Balance -200 Output: Urine 200 Uretheral (Jarvis) 200 Other: Weight 77.111 kg Gen. appearance lethargic somewhat sleepy at arousable. Uncomfortable as the patient is complaining of some back pain especially when he lays on his back. Head exam was generally normal. There was no scleral icterus or corneal arcus. Mucous membranes are extremely dry Neck was supple and without jugular venous distension, thyromegaly, or carotid bruits. Carotids were easily palpable bilaterally. There was no adenopathy. Mucous membranes are dry Lungs were clear to auscultation and percussion, and with normal diaphragmatic excursion. No wheezes or rales were noted. Heart sounds are regular, positive [place] there is no significant murmurs appreciated. Rhythm is paced. Abdominal exam revealed normal bowel sounds. The abdomen was soft, non-tender, and without masses, organomegaly, or appreciable enlargement of the abdominal aorta. Examination of the extremities revealed easily palpable radial, femoral and pedal pulses. There was no cyanosis, clubbing or edema. Examination of the skin revealed no evidence of significant rashes, suspicious appearing nevi or other concerning lesions. Neurologically the patient is able to move all 4 extremities without any limitation. No facial asymmetry. No nystagmus. No seizure activity has been noted. Skin there is a healed area of laceration over the right forehead. No cellulitis. No deformities. Results - Laboratory Findings CBC and BMP: 02/22/18 08:42 02/22/18 08:42 ABG ABG pH 7.02 (7.35-7.45) L* 02/22/18 10:37 ABG pCO2 33 mmHg (35-45) L 02/22/18 10:37 ABG pO2 152 mmHg (83-108) H 02/22/18 10:37 ABG O2 Saturation 98.0 % (94-97) H 02/22/18 10:37 PT/INR, D-dimer PT >130.0 sec (9.0-12.0) H 02/22/18 08:44 INR >10.0 (<1.2) H* 02/22/18 08:44 Abnormal lab findings: Abnormal Labs 02/22/18 02/22/18 02/22/18 08:42 08:42 08:42 Lymphocytes # (Manual) 0.41 L PT INR APTT ABG pH ABG pCO2 ABG pO2 ABG HCO3 ABG Total CO2 ABG O2 Saturation VBG pH VBG pCO2 VBG HCO3 Sodium 129 L Potassium 5.5 H Chloride 95 L Carbon Dioxide 7 L* BUN 143 H* Creatinine 5.64 H* Glucose 61 L Plasma Lactic Acid Chucho Calcium 6.6 L AST 61 H Total Creatine Kinase 2253 H CK-MB (CK-2) 34.0 H* Total Protein 5.9 L Albumin 3.0 L Urine Protein Urine Blood Ur Leukocyte Esterase Urine RBC Urine WBC Urine WBC Clumps Urine Bacteria Urine Mucus 02/22/18 02/22/18 02/22/18 08:44 08:44 08:44 Lymphocytes # (Manual) PT >130.0 H INR >10.0 H* APTT 111.7 H* ABG pH ABG pCO2 ABG pO2 ABG HCO3 ABG Total CO2 ABG O2 Saturation VBG pH 7.00 L* VBG pCO2 35 L VBG HCO3 8 L* Sodium Potassium Chloride Carbon Dioxide BUN Creatinine Glucose Plasma Lactic Acid Chucho 4.0 H* Calcium AST Total Creatine Kinase CK-MB (CK-2) Total Protein Albumin Urine Protein Urine Blood Ur Leukocyte Esterase Urine RBC Urine WBC Urine WBC Clumps Urine Bacteria Urine Mucus 02/22/18 02/22/18 10:30 10:37 Lymphocytes # (Manual) PT INR APTT ABG pH 7.02 L* ABG pCO2 33 L ABG pO2 152 H ABG HCO3 9 L* ABG Total CO2 10 L ABG O2 Saturation 98.0 H VBG pH VBG pCO2 VBG HCO3 Sodium Potassium Chloride Carbon Dioxide BUN Creatinine Glucose Plasma Lactic Acid Chucho Calcium AST Total Creatine Kinase CK-MB (CK-2) Total Protein Albumin Urine Protein Trace H Urine Blood Trace H Ur Leukocyte Esterase Trace H Urine RBC 10 H Urine WBC 22 H Urine WBC Clumps Rare H Urine Bacteria Rare H Urine Mucus Rare H - Diagnostic Findings Chest x-ray: image reviewed Assessment and Plan Plan: Assessment 1 acute kidney injury, secondary to intravascular volume depletion and dehydration secondary to diarrhea in addition to intake of nonsteroidal anti- inflammatory medication for back pain. 2 acute metabolic acidosis secondary to above. This is an anion gap metabolic acidosis with mild component of lactic acidosis 3 acute hypotension, secondary to hypovolemic shock, responded to fluids and currently he is on no pressors 4 generalized weakness secondary to above 5 altered mentation secondary to above 6 recent head trauma with subsequent new onset seizure currently on Keppra 7 Coumadin toxicity probably related to underlying renal failure and no evidence of any acute bleeding 8 chronic atrial fibrillation 9 history of pacemaker insertion 10 coronary artery disease 11 congestion heart failure 12 thyroid cancer and previous thyroidectomy 13 BPH 14 hypertension 15 back pain related to T8 compression fracture addition to degenerative spine disease and mild component of spinal canal stenosis L4-L5 Plan Continue with fluid resuscitation. The patient is currently on a bicarb drip. He has received already 4 L of normal saline. Urine output is improving. Jarvis catheter is in place. Monitor potassium level. Nephrology consultation. Ultrasound the kidneys. Monitor lactic acid level. Monitor coagulation profile. Give the patient total of 5 mg of vitamin K IV and repeat the PT/INR. No signs of any acute bleeding. Avoid nephrotoxic agents. Avoid nonsteroidal anti-inflammatory medications for now. Use Dilaudid for pain control 0.5 mg every 4-6 hours on a when necessary basis. Obtain echocardiogram. Use pressors if needed for hemodynamic support. The patient will be moved to the intensive care unit for further monitoring.
[2018-02-22 12:43] LABS: Albumin 2.3 g/dL (3.5-5.0); Potassium 5.1 mmol/L (3.5-5.1); Total Bilirubin 0.9 mg/dL (0.2-1.3); Total Protein 4.7 g/dL (6.3-8.2)
[2018-02-22 12:53] LABS: Calcium 6.3 mg/dL (8.4-10.2); Phosphorus 9.9 mg/dL (2.5-4.5)
[2018-02-22 12:54] LABS: Magnesium 0.8 mg/dL (1.6-2.3); Partial Thromboplastin Time 124.1 sec (22.0-30.0)
[2018-02-22 12:55] LABS: INR >10.0 (<1.2); Prothrombin Time >130.0 sec (9.0-12.0)
[2018-02-22 13:31] LABS: Band Neutrophils % 14 %; Crenated RBC Present; Lymphocytes # (M) 0.34 k/uL (1.0-4.8); Metamyelocytes # (M) 0.14 k/uL (0); Metamyelocytes % 3 %; Monocytes # (M) 0.05 k/uL (0-1.0); Myelocytes # (M) 0.43 k/uL (0); Myelocytes % 9 %; Neutrophils % (M) 68 %; Nucleated Red Blood Cells 0 /100 WBC (0-0); Poikilocytosis (M) Present; RBC Fragments Present; Total Cells Counted 200; Toxic Granulation Present
[2018-02-22] MEDS ORDERED: NOREPINEPHRIN 4 MG-0.9% NS PMX 4 MG/250 ML ML IV ONE (13:35)
--- NOTE | 2018-02-22 14:16 | PCN ---
PROCEDURE NOTE PROCEDURE: Insertion of triple-lumen catheter. PREOP DIAGNOSIS: Acute renal failure. POSTOP DIAGNOSIS: Acute renal failure. SITE OF INSERTION: Right femoral vein. TRIPLE LUMEN CATHETER PLACEMENT: Indication Hemodynamic monitoring/Intravenous access. A time-out was completed verifying correct patient, procedure, site, positioning, and implant(s) or special equipment if applicable. The patient was placed in a dependent position appropriate for triple lumen catheter placement based on the vein to be cannulated. The patient's right groin was prepped and draped in sterile fashion. 1% Lidocaine was used to anesthetize the surrounding skin area. A triple lumen 9F Cordis catheter was introduced into the common femoral vein using Seldinger technique. The catheter was threaded smoothly over the guide wire and appropriate blood return was obtained. Each lumen of the catheter was evacuated of air and flushed with sterile saline. The catheter was then sutured in place to the skin and a sterile dressing applied. Perfusion to the extremity distal to the point of catheter insertion was checked and found to be adequate. No bedside complication or bleeding. MMODL / IJN: [id number] /
--- NOTE | 2018-02-22 14:22 | PCN ---
PROCEDURE NOTE PROCEDURE: Insertion art line catheter. SITE OF INSERTION: Right femoral artery. ARTERIAL LINE PLACEMENT: Indications: Hemodynamic monitoring. A time-out was completed verifying correct patient, procedure, site, positioning, and implant(s) or special equipment if applicable. Eulalio's test was performed to ensure adequate perfusion. The patient's right groin was prepped and draped in sterile fashion. 1% Lidocaine was used to anesthetize the area. An 18G Arrow arterial line was introduced into the femoral artery. The catheter was threaded over the guide wire and the needle was removed with appropriate pulsatile blood return. Blood loss was minimal. The catheter was then sutured in place to the skin and a sterile dressing applied. Perfusion to the extremity distal to the point of catheter insertion was checked and found to be adequate. The patient tolerated the procedure well and there were no complications. No bedside complications or bleeding. MMODL / IJN: [id number] /
[2018-02-22] MEDS: MAGNESIUM SULFATE-D5W PMX 1 GM in DEXTROSE/WATER 1 100ML.BAG IVPB SCH ×2 (14:39→16:37)
[2018-02-22 15:11] LABS: Glucose,Whole Blood 127 mg/dL (75-99)
[2018-02-22] MEDS ORDERED: SODIUM CHLORIDE 0.9% 1,000 ML IV SCH (15:15)
[2018-02-22 15:20] LABS: ABG Oxygen Saturation 95.1 % (94-97); ABG PCO2 38 mmHg (35-45); ABG PO2 97 mmHg (83-108); ABG TCO2 11 mmol/L (19-24)
[2018-02-22 15:23] LABS: ABG PH 7.02 (7.35-7.45)
[2018-02-22 15:24] LABS: ABG HCO3 10 mmol/L (21-25)
[2018-02-22] MEDS ORDERED: PROPOFOL 1,000 MG in EMPTY BAG 1 BAG IV SCH ×2 (15:30→16:00)
[2018-02-22] MEDS ORDERED: PROPOFOL 100 ML IV ONE (15:32)
--- NOTE | 2018-02-22 16:14 | XR ---
EXAMINATION TYPE: XR chest 1V portable DATE OF EXAM: 02/22/2018 Comparison: 02/22/2018 Clinical History: 82-year-old male Tube placement Findings: ETT tube tip at the level of the jared. Recommend pulling back by 4 cm. Heart borderline to mildly e nlarged. [place] obscured by adjacent pleural parenchymal disease. Left hemidiaphragm remains elevated N G tube is below the left hemidiaphragm, satisfactory. Some patchy left basilar opacity remains. Left anterior chest wall pacemaker generator with right ventricular and right atrial leads. Impression: 1. ET tube tip at the jared. Pull back 4 cm and reassess at follow-up. 2. Continued elevation of left hemidiaphragm with patchy left basilar atelectasis. NG tube is likely appropriately positioned.
[2018-02-22 16:19] LABS: ABG Base Excess -20.1 mmol/L; ABG Oxygen Saturation 99.7 % (94-97); ABG PCO2 35 mmHg (35-45); ABG PO2 305 mmHg (83-108); ABG TCO2 11 mmol/L (19-24)
[2018-02-22 16:28] LABS: HCT 36.5 % (39.0-53.0); HGB 11.3 gm/dL (13.0-17.5); MCH 26.8 pg (25.0-35.0); MCV 86.4 fL (80.0-100.0); Mean Platelet Volume 8.8; Platelet Count 165 k/uL (150-450); RBC 4.23 m/uL (4.30-5.90); RDW 15.1 % (11.5-15.5); WBC 3.9 k/uL (3.8-10.6)
[2018-02-22 16:29] LABS: ABG HCO3 10 mmol/L (21-25); ABG PH 7.07 (7.35-7.45)
[2018-02-22] MEDS: NOREPINEPHRINE 16 MG in DEXTROSE 5% IN WATER 250 ML IV SCH ×4 (16:48→22:54)
[2018-02-22 16:59] LABS: Prothrombin Time 124.8 sec (9.0-12.0)
[2018-02-22 17:01] LABS: Albumin 1.1 g/dL (3.5-5.0); Total Bilirubin 0.3 mg/dL (0.2-1.3); Total Protein 2.7 g/dL (6.3-8.2)
[2018-02-22 17:02] LABS: INR >10.0 (<1.2)
[2018-02-22 17:03] LABS: Partial Thromboplastin Time 101.2 sec (22.0-30.0)
--- NOTE | 2018-02-22 17:09 | P.HPIM ---
History of Present Illness This is a pleasant 82 years old male with past medical history of coronary artery disease, chronic atrial fibrillation, hypertension, thyroid disorder, MRSA infection, status post cardiac cath and pacemaker. Status post thyroidectomy. Who presents because of confusion and lethargy, pt could not provide information so it was taken from the family (, daughter, and sister ) at bed site, as per family pt came to ED on 02/06 after he fell and hit his head and had bleeding wound from his forehead, he went to his pcp who treated him conservatively , on 02/08 he came to ED after he bled from his forehead wound which and brought to the ED , bleeding was controlled and pt was sent home. from 02/13-02/16 was admitted to the hospital after he sustained grand mal seizure for 3 min and he was evaluated by neurologist at that time, pt was started on keppra , pt also had CT scan of the lumbar spine which showed no fracture, this time pt comes because he is getting more and more confused , as per family he is been having diarrhea over 3-4 dys, no abd pain or n/v as per family, in the last 24 hrs pt had two large bowel movement, family did not notice any blood in it. on admission he was found to be hypotensive (94/41) and with acute renal failure with electolytes abnormality. pt was admitted to the ICU for further management In the ED his blood pressure was low 73/45, currently 98/45. Patient is afebrile . heart rate 66. A breathing rate was above 20s now 18. Hemoglobin 13.2, WBC 5.9. ABG showing pH of 7.0 to, pCO2 33, and pO2: 2. Sodium 129, potassium 5.5 calcium low at 6.6.. Calcium 5.6. Lactic acid high at 4.0. Liver function tests were unremarkable except for mildly elevated AST at 61. Total creatine kinase 2253, CK-MB is high at 34.0, troponins less than 0.012. Head CT is negative for acute abnormality x-ray showing cardiomegaly, and clear lungs. CT of the abdomen without contrast showing marked elevation of the left hemidiaphragm, cardiomegaly, scant right pleural effusion Patient got IV boluses and calcium chloride IV once, sodium bicarb once a breathing treatment. Also patient got vitamin K 5 mg IV once and Review of Systems N/A , pt is confused Past Medical History Past Medical History: Atrial Fibrillation, Coronary Artery Disease (CAD), Hypertension, Thyroid Disorder Additional Past Medical History / Comment(s): thyroid cancer History of Any Multi-Drug Resistant Organisms: MRSA Date of last positivie culture/infection: 2001 MDRO Source:: abd Past Surgical History: Heart Catheterization, Pacemaker Additional Past Surgical History / Comment(s): stomach surgery, thyroidectomy, sinus surgery Past Anesthesia/Blood Transfusion Reactions: No Reported Reaction Type of Cardiac Device: Unknown Device Placement Date:: October 2015 Past Psychological History: No Psychological Hx Reported Smoking Status: Former smoker Past Alcohol Use History: Daily Additional Past Alcohol Use History / Comment(s): 2-3 beers daily, not drinking recently due to being sick-last drink one week ago Past Drug Use History: None Reported - Past Family History Father Family Medical History: Myocardial Infarction ([place]) Sister(s) Family Medical History: Cancer Additional Family Medical History / Comment(s): Thyroid Mother Family Medical History: Diabetes Mellitus Medications and Allergies Home Medications Medication Instructions Recorded Confirmed Type Allopurinol [Zyloprim] 100 mg PO HS 02/08/18 02/22/18 History Cetirizine HCl [Zyrtec] 10 mg PO DAILY 02/08/18 02/22/18 History Furosemide [Lasix] 40 mg PO DAILY 02/08/18 02/22/18 History Levothyroxine Sodium [Synthroid] 137 mcg PO DAILY 02/08/18 02/22/18 History Omeprazole 20 mg PO DAILY 02/08/18 02/22/18 History Tamsulosin HCl [Flomax] 0.4 mg PO 02/08/18 02/22/18 History Warfarin [Coumadin] 2.5 mg PO DAILY 02/08/18 02/22/18 History amLODIPine/VALSARTAN [Exforge 1 tab PO DAILY 02/08/18 02/22/18 History 10-160 mg Tablet] Naproxen [Naprosyn] 500 mg PO Q12HR PRN 02/13/18 02/22/18 History Acetaminophen Tab [Tylenol] 650 mg PO Q6HR PRN tab 02/16/18 02/22/18 Rx Folic Acid 1 mg PO DAILY #30 tablet 02/16/18 02/22/18 Rx Multivitamins, Thera [Multivitamin] 1 tab PO DAILY #30 tablet 02/16/18 02/22/18 Rx Thiamine [Vitamin B-1] 100 mg PO DAILY #30 tablet 02/16/18 02/22/18 Rx levETIRAcetam [Keppra] 500 mg PO Q12HR #60 tab 02/16/18 02/22/18 Rx HYDROcodone/APAP 5-325MG [[place] 1 tab PO Q8H PRN 02/22/18 02/22/18 History 5-325] Allergies Allergy/AdvReac Type Severity Reaction Status Date / Time No Known Allergies Allergy Verified 02/22/18 10:41 Physical Exam Vitals: Vital Signs Temp Pulse Resp BP Pulse Ox 02/22/18 11:45 96.9 F L 66 18 98/45 98 02/22/18 11:20 68 26 H 99/52 98 02/22/18 10:25 61 28 H 96/61 97 02/22/18 10:16 63 02/22/18 10:00 60 02/22/18 09:20 60 18 89/51 96 02/22/18 09:11 65 26 H 85/41 98 02/22/18 08:56 64 26 H 92/54 98 02/22/18 08:33 28 H 02/22/18 08:26 73 25 H 73/45 Intake and Output 02/21/18 02/22/18 02/22/18 22:59 06:59 14:59 Output Total 200 Balance -200 Output: Urine 200 Uretheral (Jarvis) 200 Other: Weight 77.111 kg GENERAL: The patient is alert and oriented x0, he looks in distress due to hypotension and other illnesses. he opens eyes spontaneously but not answer questions however he could follow simple command HEENT: Pupils are round and equally reacting to light. EOMI. No scleral icterus. No conjunctival pallor. Normocephalic, atraumatic. No pharyngeal erythema. No thyromegaly. CARDIOVASCULAR: S1 and S2 present. No murmurs, rubs, or gallops. PULMONARY: Chest is clear to auscultation, no wheezing or crackles. ABDOMEN: Soft, nontender, nondistended, normoactive bowel sounds. No palpable organomegaly. MUSCULOSKELETAL: No joint swelling or deformity. EXTREMITIES: No cyanosis, clubbing, or pedal edema. NEUROLOGICAL: Gross neurological examination did not reveal any focal deficits. SKIN: No rashes. Results CBC & Chem 7: 02/22/18 16:10 02/22/18 12:04 Labs: Abnormal Lab Results - Last 24 Hours (Table) 02/22/18 02/22/18 02/22/18 Range/Units 08:42 08:42 08:42 Lymphocytes # (Manual) 0.41 L (1.0-4.8) k/uL PT (9.0-12.0) sec INR (<1.2) APTT (22.0-30.0) sec ABG pH (7.35-7.45) ABG pCO2 (35-45) mmHg ABG pO2 (83-108) mmHg ABG HCO3 (21-25) mmol/L ABG Total CO2 (19-24) mmol/L ABG O2 Saturation (94-97) % VBG pH (7.31-7.41) VBG pCO2 (37-51) mmHg VBG HCO3 (24-28) mmol/L Sodium 129 L (137-145) mmol/L Potassium 5.5 H (3.5-5.1) mmol/L Chloride 95 L (98-107) mmol/L Carbon Dioxide 7 L* (22-30) mmol/L BUN 143 H* (9-20) mg/dL Creatinine 5.64 H* (0.66-1.25) mg/dL Glucose 61 L (74-99) mg/dL Plasma Lactic Acid Chucho (0.7-2.0) mmol/L Calcium 6.6 L (8.4-10.2) mg/dL AST 61 H (17-59) U/L Total Creatine Kinase 2253 H (55-170) U/L CK-MB (CK-2) 34.0 H* (0.0-2.4) ng/mL Total Protein 5.9 L (6.3-8.2) g/dL Albumin 3.0 L (3.5-5.0) g/dL Urine Protein (Negative) Urine Blood (Negative) Ur Leukocyte Esterase (Negative) Urine RBC (0-5) /hpf Urine WBC (0-5) /hpf Urine WBC Clumps (None) /hpf Urine Bacteria (None) /hpf Urine Mucus (None) /hpf 02/22/18 02/22/18 02/22/18 Range/Units 08:44 08:44 08:44 Lymphocytes # (Manual) (1.0-4.8) k/uL PT >130.0 H (9.0-12.0) sec INR >10.0 H* (<1.2) APTT 111.7 H* (22.0-30.0) sec ABG pH (7.35-7.45) ABG pCO2 (35-45) mmHg ABG pO2 (83-108) mmHg ABG HCO3 (21-25) mmol/L ABG Total CO2 (19-24) mmol/L ABG O2 Saturation (94-97) % VBG pH 7.00 L* (7.31-7.41) VBG pCO2 35 L (37-51) mmHg VBG HCO3 8 L* (24-28) mmol/L Sodium (137-145) mmol/L Potassium (3.5-5.1) mmol/L Chloride (98-107) mmol/L Carbon Dioxide (22-30) mmol/L BUN (9-20) mg/dL Creatinine (0.66-1.25) mg/dL Glucose (74-99) mg/dL Plasma Lactic Acid Chucho 4.0 H* (0.7-2.0) mmol/L Calcium (8.4-10.2) mg/dL AST (17-59) U/L Total Creatine Kinase (55-170) U/L CK-MB (CK-2) (0.0-2.4) ng/mL Total Protein (6.3-8.2) g/dL Albumin (3.5-5.0) g/dL Urine Protein (Negative) Urine Blood (Negative) Ur Leukocyte Esterase (Negative) Urine RBC (0-5) /hpf Urine WBC (0-5) /hpf Urine WBC Clumps (None) /hpf Urine Bacteria (None) /hpf Urine Mucus (None) /hpf 02/22/18 02/22/18 Range/Units 10:30 10:37 Lymphocytes # (Manual) (1.0-4.8) k/uL PT (9.0-12.0) sec INR (<1.2) APTT (22.0-30.0) sec ABG pH 7.02 L* (7.35-7.45) ABG pCO2 33 L (35-45) mmHg ABG pO2 152 H (83-108) mmHg ABG HCO3 9 L* (21-25) mmol/L ABG Total CO2 10 L (19-24) mmol/L ABG O2 Saturation 98.0 H (94-97) % VBG pH (7.31-7.41) VBG pCO2 (37-51) mmHg VBG HCO3 (24-28) mmol/L Sodium (137-145) mmol/L Potassium (3.5-5.1) mmol/L Chloride (98-107) mmol/L Carbon Dioxide (22-30) mmol/L BUN (9-20) mg/dL Creatinine (0.66-1.25) mg/dL Glucose (74-99) mg/dL Plasma Lactic Acid Chucho (0.7-2.0) mmol/L Calcium (8.4-10.2) mg/dL AST (17-59) U/L Total Creatine Kinase (55-170) U/L CK-MB (CK-2) (0.0-2.4) ng/mL Total Protein (6.3-8.2) g/dL Albumin (3.5-5.0) g/dL Urine Protein Trace H (Negative) Urine Blood Trace H (Negative) Ur Leukocyte Esterase Trace H (Negative) Urine RBC 10 H (0-5) /hpf Urine WBC 22 H (0-5) /hpf Urine WBC Clumps Rare H (None) /hpf Urine Bacteria Rare H (None) /hpf Urine Mucus Rare H (None) /hpf Assessment and Plan Assessment: Acute hypotension Coagulopathy, secondary to Coumadin which is on hold Acute renal failure with creatinine up to 5+, multifactorial for example from low blood pressure and NSAIDs Metabolic acidosis secondary to above Electrolytes abnormality including Hypocalcemia, hyperkalemia, hyponatremia Elevated creatine kinase History of seizure History of hypertension, blood pressure medication and hold for low blood pressure History of gout Plan: Patient is a pleasant 52 years old male who presents in the critical conditions with hypotension and acute renal failure. Continue with the same treatment. Continue asymptomatic treatment. Patient admitted to the intensive care unit with commercial mortgage broker consult. pt is started on levophed. Flow Coordinator and scrap iron cutter will be consulted. Resume his seizure medication. Hold Coumadin and monitor INR and hemoglobin. Monitor vitals and labs including kidney function and electrolytes. Recheck troponins and hemoglobin. Send urine and blood culture. Monitor glucose. DVT and GI prophylaxis. Continue with IV fluids. Further recommendations is going to be according to clinical course DVT prophylaxis patient is already has INR> 10 GI prophylaxis: Pepcid code status ; discussed with at bed side, she is next of kin, she states she wants everything to be done , full code for now. asked to bring paper for living will if he has a one prognosis is guarded
[2018-02-22 17:10] LABS: Calcium 3.3 mg/dL (8.4-10.2); Potassium 2.8 mmol/L (3.5-5.1)
[2018-02-22] MEDS ORDERED: PHYTONADIONE 10 MG in SODIUM CHLORIDE 0.9% 50 ML IVPB STA (17:34)
[2018-02-22 17:36] LABS: Anisocytosis (M) Present; Band Neutrophils % 14 %; Crenated RBC Present; Lymphocytes # (M) 0.23 k/uL (1.0-4.8); Neutrophils % (M) 75 %; Nucleated Red Blood Cells 0 /100 WBC (0-0); Poikilocytosis (M) Present; Total Cells Counted 100
[2018-02-22 17:37] LABS: Toxic Granulation Present
[2018-02-22 17:39] LABS: Glucose,Whole Blood 151 mg/dL (75-99)
[2018-02-22 17:51] LABS: Albumin 2.4 g/dL (3.5-5.0); Total Bilirubin 0.9 mg/dL (0.2-1.3); Total Protein 4.8 g/dL (6.3-8.2)
[2018-02-22] MEDS ORDERED: CALCIUM CHLORIDE 2,000 MG in SODIUM CHLORIDE 0.9% 100 ML IVPB STA (18:39)
[2018-02-22 18:53] LABS: ABG Base Excess -15.5 mmol/L; ABG HCO3 12 mmol/L (21-25); ABG Oxygen Saturation 97.5 % (94-97); ABG PCO2 26 mmHg (35-45); ABG PH 7.26 (7.35-7.45); ABG PO2 99 mmHg (83-108); ABG TCO2 13 mmol/L (19-24)
[2018-02-22] MEDS: SODIUM CHLORIDE 0.9% 99 ML with VASOPRESSIN 20 UNIT IV SCH ×4 (18:57→23:50)
[2018-02-22] MEDS: INSULIN ASPART 100 UNIT/ML 1 ML 10 ML VIAL SQ SCH (19:06)
[2018-02-22 20:15] LABS: Glucose,Whole Blood 119 mg/dL (75-99)
[2018-02-22] MEDS ORDERED: VANCOMYCIN IV PER PHARMACY 1 EACH MISC MISCELLANE PRN (20:25)
[2018-02-22] MEDS: PIPERACILLIN-TAZOBACTAM 3.375 GM in DEXTROSE/WATER 1 50ML.BAG IVPB SCH (20:52)
[2018-02-22] MEDS: CHLORHEXIDINE GLUCONATE 15 ML CUP MUCOUS MEM SCH (20:52)
[2018-02-22] MEDS ORDERED: DOXYCYCLINE MONOHYDRATE 100 MG CAPSULE PO SCH (21:00)
[2018-02-22] MEDS ORDERED: levETIRAcetam 500 MG TAB PO SCH (21:00)
[2018-02-22] MEDS ORDERED: VANCOMYCIN 1,500 MG in SODIUM CHLORIDE 0.9% 250 ML IVPB ONE (21:00)
[2018-02-22] MEDS ORDERED: TAMSULOSIN 0.4 MG CAP.ER.24H PO SCH (21:00)
--- NOTE | 2018-02-22 21:13 | XR ---
EXAMINATION TYPE: XR chest 1V portable DATE OF EXAM: 02/22/2018 Comparison: Earlier today Clinical History: 82-year-old male confirm tube placement Findings: Satisfactory pullback of the ET tube now located 5.37 m from the jared. NG tube continues below the diaphragm. Continued elevation of the left hemidiaphragm. Mild diffuse interstitial prominence unchan ged. Some patchy left basilar opacity remains. Left anterior chest wall pacemaker generator with righ t atrial and right ventricular leads. Impression: ET tube is satisfactory now. Continued elevation of the left hemidiaphragm with patchy left basilar a telectasis.
[2018-02-22 22:16] VITALS: BMI 24.3
[2018-02-22] MEDS: levETIRAcetam ORAL SOLN 500 MG/5 ML CUP OG-TUBE SCH (22:54)
[2018-02-22 23:22] LABS: Glucose,Whole Blood 111 mg/dL (75-99)
[2018-02-22 23:44] LABS: ABG Base Excess -15.8 mmol/L; ABG HCO3 11 mmol/L (21-25); ABG Oxygen Saturation 97.7 % (94-97); ABG PCO2 24 mmHg (35-45); ABG PH 7.27 (7.35-7.45); ABG PO2 108 mmHg (83-108); ABG TCO2 12 mmol/L (19-24)
[2018-02-22 23:51] LABS: INR 3.5 (<1.2); Partial Thromboplastin Time 67.8 sec (22.0-30.0); Prothrombin Time 31.5 sec (9.0-12.0)
[2018-02-22 23:53] LABS: Calcium 6.7 mg/dL (8.4-10.2); Magnesium 1.3 mg/dL (1.6-2.3); Phosphorus 7.9 mg/dL (2.5-4.5); Potassium 4.7 mmol/L (3.5-5.1)
[2018-02-22 23:59] LABS: HCT 37.9 % (39.0-53.0); HGB 12.4 gm/dL (13.0-17.5); MCH 27.1 pg (25.0-35.0); MCHC 32.8 g/dL (31.0-37.0); MCV 82.7 fL (80.0-100.0); Mean Platelet Volume 8.5; Platelet Count 149 k/uL (150-450); RBC 4.58 m/uL (4.30-5.90); RDW 15.3 % (11.5-15.5); WBC 2.9 k/uL (3.8-10.6)
[2018-02-23 00:16] LABS: Anisocytosis (M) Present; Band Neutrophils % 14 %; Crenated RBC Present; Lymphocytes # (M) 0.12 k/uL (1.0-4.8); Monocytes # (M) 0.38 k/uL (0-1.0); Neutrophils % (M) 69 %; Nucleated Red Blood Cells 0 /100 WBC (0-0); Poikilocytosis (M) Present; Total Cells Counted 100
[2018-02-23 00:17] LABS: Toxic Granulation Present
[2018-02-23] MEDS: INSULIN ASPART 100 UNIT/ML 1 ML 10 ML VIAL SQ SCH ×2 (01:35→07:18)
[2018-02-23] MEDS: MAGNESIUM SULFATE-D5W PMX 1 GM in DEXTROSE/WATER 1 100ML.BAG IVPB SCH ×2 (02:09→02:37)
[2018-02-23 04:20] LABS: HCT 37.9 % (39.0-53.0); HGB 12.3 gm/dL (13.0-17.5); MCH 26.8 pg (25.0-35.0); MCHC 32.6 g/dL (31.0-37.0); MCV 82.4 fL (80.0-100.0); Platelet Count 113 k/uL (150-450); RDW 15.4 % (11.5-15.5)
[2018-02-23 04:27] LABS: INR 2.7 (<1.2); Partial Thromboplastin Time 65.2 sec (22.0-30.0); Prothrombin Time 23.8 sec (9.0-12.0)
[2018-02-23 04:40] LABS: ABG Base Excess -16.1 mmol/L; ABG HCO3 11 mmol/L (21-25); ABG Oxygen Saturation 97.1 % (94-97); ABG PCO2 25 mmHg (35-45); ABG PH 7.26 (7.35-7.45); ABG PO2 102 mmHg (83-108); ABG TCO2 12 mmol/L (19-24)
[2018-02-23 04:52] LABS: Band Neutrophils % 11 %; Lymphocytes # (M) 0.32 k/uL (1.0-4.8); Metamyelocytes # (M) 0.05 k/uL (0); Metamyelocytes % 1 %; Neutrophils % (M) 67 %; Nucleated Red Blood Cells 2 /100 WBC (0-0); Total Cells Counted 200
[2018-02-23 04:53] LABS: Monocytes # (M) 0.63 k/uL (0-1.0); WBC 4.5 k/uL (3.8-10.6)
[2018-02-23 04:58] LABS: Albumin 2.1 g/dL (3.5-5.0); Anisocytosis (M) Present; Crenated RBC Present; Magnesium 1.8 mg/dL (1.6-2.3); Poikilocytosis (M) Present; Potassium 4.8 mmol/L (3.5-5.1); Total Bilirubin 0.9 mg/dL (0.2-1.3); Total Protein 4.5 g/dL (6.3-8.2); Toxic Granulation Present
[2018-02-23 05:17] LABS: Calcium 6.1 mg/dL (8.4-10.2); Phosphorus 8.1 mg/dL (2.5-4.5)
[2018-02-23 05:49] LABS: Glucose,Whole Blood 111 mg/dL (75-99)
[2018-02-23] MEDS ORDERED: LEVOTHYROXINE 137 MCG TAB PO SCH (06:30)
[2018-02-23] MEDS ORDERED: PANTOPRAZOLE 40 MG TABLET PO SCH (07:30)
--- NOTE | 2018-02-23 07:44 | XR ---
EXAMINATION TYPE: XR chest 1V portable DATE OF EXAM: 02/23/2018 Comparison: 02/22/2018 Clinical History: 82-year-old male Tube placement Findings: ET tube is satisfactory. NG tube courses below the diaphragm and is looped below the left hemidiaphra gm as seen previously. Continued elevation of the left hemidiaphragm. Patchy left basilar opacity per sists. Mild diffuse interstitial prominence is unchanged. Left anterior chest wall pacemaker generato r with right atrial and right ventricular leads. Impression: Stable exam with elevated left hemidiaphragm and patchy left basilar atelectasis.
[2018-02-23 08:27] VITALS: TEMP 100.3
[2018-02-23] MEDS: CHLORHEXIDINE GLUCONATE 15 ML CUP MUCOUS MEM SCH (08:31)
[2018-02-23] MEDS: levETIRAcetam ORAL SOLN 500 MG/5 ML CUP OG-TUBE SCH (08:31)
[2018-02-23] MEDS: PIPERACILLIN-TAZOBACTAM 3.375 GM in DEXTROSE/WATER 1 50ML.BAG IVPB SCH (08:31)
[2018-02-23] MEDS: DEXTROSE 5% IN WATER 1,000 ML with SODIUM BICARB (1 MEQ/ML) 150 ML IV SCH (08:36)
[2018-02-23] MEDS ORDERED: THIAMINE 100 MG TAB PO SCH (09:00)
[2018-02-23 10:39] VITALS: BP 57/34; PULSE 0; RESP 0
[2018-02-23] MEDS ORDERED: VANCOMYCIN 1,500 MG in SODIUM CHLORIDE 0.9% 250 ML IVPB ONE (11:00)
--- NOTE | 2018-02-23 11:28 | P.PN ---
Subjective Progress Note Date: 02/23/18 Principal diagnosis: Acute septic and hypovolemic shock with respiratory failure and gram-positive bacteremia 82-year-old male patient who comes into the MRSA problem with confusion and lethargy and weakness. He was hypotensive with a systolic blood pressure in the mid 50s. His cardiac rhythm was paced at the rate of 60. He was awake. Apparently this patient has been having diarrhea for the past 3-4 days. His oral intake was minimal and he was unable to keep up with his oral intake. As such his condition progressively got worse. No nausea. No emesis. No reported fever or chills. He had a recent fall and he had injured his back and he was taking Naprosyn for pain control. His blood work was significantly abnormal. First of all, the patient a creatinine of 5.6 consistent with acute kidney injury knowing that his renal function was within normal limits. Sodium level was 129. Potassium level was 5.5. The patient had a serum bicarb level of 7 and there is a component of anion gap metabolic acidosis. His sugar was 61. He also had Coumadin toxicity with an INR of more than 10. Based on his ongoing diarrhea, a CAT scan of the abdomen and pelvis was done that showed marked elevation of the left hemidiaphragm which is probably chronic. There is questionable evidence of distal small bowel obstruction. His cardiac megaly. There is a small right-sided pleural effusion. There is a direct inguinal hernia and degenerative changes involving the lumbar spine. This patient was hospitalized recently. Note that he was doing well and his initial problem started after he had a blunt trauma to his head for which she came to the emergency department on 02/08/2018. At that time the workup was done including a CAT scan of the head and cervical spine and the findings were negative and the patient was discharged home. Around 5 days later, the patient came into the hospital because of suspected seizure. EEG was done and it showed no evidence of any acute seizure however there was a component of mild encephalopathy. The patient was seen by neurology. The patient was started on Keppra. He was discharged home. Note that he was also complaining of back pain and a CAT scan of the lumbosacral spine was done that showed no evidence of any acute fracture or malalignment of the lumbar spine. There was evidence of compression deformity seen on previous x-ray from 2017. There was multilevel moderate degenerative disc disease with variable degrees of foraminal narrowing and a mild component of spinal canal stenosis L4-L5. The patient as such was taken nonsteroidal anti-from either medication for pain. No ongoing seizure activity since his discharge from the hospital. For now, the patient is in the emergency department. He has already received a 3 L of fluid in the form of normal saline. He is started on a bicarb drip. I give additional 1 L and his blood pressure came up to 98 systolic. He has a Jarvis catheter. Is producing urine output and he is producing around 200 mL. His urine output is nonbloody. Note that he has a CPK that was measured at 2253. Troponins are negative. Urinalysis showed 22 wbc's, 10 rbc's, and trace protein. The blood gas showed severe acidosis which is essentially metabolic with a pH of 7.02 with a pCO2 of 33 and pO2 152. His lactic acid level is at 4.0. Reevaluated today on 02/23/2018, patient remains on mechanical ventilation, and the ventilator settings were unchanged as noted above by Dr. Foss. Patient is maximized on norepinephrine and maximized on vasopressin blood pressure remains low in the 50s in spite of high dose of pressors and multiple fluid boluses have been given. Blood pressure this morning is above 50 for systolic. Patient has a paced rhythm 68/m. His blood pressure has been ranging between 50 to up to 64 in the last few hours in spite of maximal pressors that up. Family is all at bedside, including his children and his , and I discussed his condition with all the family members at bedside. Apparently they have already made up their minds before I even talked to them that they would like him to be placed on comfort care measures only. I reviewed the chart with them , reviewed the clinical findings including the positive blood cultures, I have also reviewed the medications, chest x-ray, ventilator settings, and considering the patient is failing to respond to therapy and has been hypertensive for quite some time in spite of maximal pressors therapy, I agreed with the family that his clinical status is extremely poor, prognosis is extremely poor, and we will proceed with stopping the pressors, and proceed to comfort care measures only. At that point we have discontinued his norepinephrine and discontinued his vasopressin, and shortly after that was done even before extubating the patient, patient passed peacefully in peace comfort and dignity. Objective - Vital Signs Vital signs: Vital Signs Temp 100.3 F H 02/23/18 08:00 Pulse 0 L 02/23/18 09:40 Resp 0 L 02/23/18 09:40 BP 57/34 02/23/18 09:30 Pulse Ox 92 L 02/23/18 07:15 Intake & Output 02/22/18 02/23/18 02/23/18 18:59 06:59 18:59 Intake Total 2646.364 4335.044 306.063 Output Total 905 1540 70 Balance 009.829 8835.044 236.063 Weight 77.1 kg 83.9 kg 83.9 kg Intake: IV 2820.0 240 Dextrose 5% in Water 1, 1100 200 000 ml @ 100 mls/hr IV . [id number] [facility]AR[facility] with Sodium Bicarb (1 Meq/ml) 150 ml Rx#:[id number] Magnesium Sulfate-D5w Pmx 200 1 gm In Dextrose/Water 1 100ml.bag @ 100 mls/hr IVPB Q1H [facility] Rx#: [id number] Piperacillin-Tazobactam 3 50.0 .375 gm In Dextrose/Water 1 50ml.bag @ 12.5 mls/hr IVPB Q12HR [facility] Rx#: [id number] Sodium Chloride 0.9% 1, 220 40 000 ml @ 20 mls/hr IV . Q24H [facility] Rx#:[id number] Sodium Chloride 0.9% 1, 1000 000 ml @ 999 mls/hr IV . Q1H1M ONE Rx#:[id number] Vancomycin 1,500 mg In 250 Sodium Chloride 0.9% 250 ml @ 125 mls/hr IVPB ONCE ONE Rx#:[id number] Intake, IV Titration 1026.369 679.044 66.063 Amount Calcium Chloride 2,000 mg 100 In Sodium Chloride 0.9% 100 ml @ 100 mls/hr IVPB ONCE STA Rx#:[id number] Dextrose 5% in Water 1, 500 100 000 ml @ 100 mls/hr IV . [id number] [facility] with Sodium Bicarb (1 Meq/ml) 150 ml Rx#:[id number] Magnesium Sulfate-D5w Pmx 100 1 gm In Dextrose/Water 1 100ml.bag @ 100 mls/hr IVPB Q1H [facility] Rx#: [id number] Norepinephrin 4 mg-0.9% 168.6 Ns Pmx 4 mg In 250 ml @ 0 mls/hr IV .STK-MED [facility] Rx#:[id number] Norepinephrine 16 mg In 90.969 439.823 Dextrose 5% in Water 250 ml @ Titrate IV .Q0M [facility] Rx#:[id number] Phytonadione 10 mg In 50 Sodium Chloride 0.9% 50 ml @ 100 mls/hr IVPB ONCE STA Rx#:[id number] Propofol 1,000 mg In 36.8 9.2 Empty Bag 1 bag @ Titrate IV .Q0M [facility] Rx#: [id number] Propofol 1,000 mg In 10.021 66.063 Empty Bag 1 bag @ Titrate IV .Q0M [facility] Rx#: [id number] Sodium Chloride 0.9% 1, 80 20 000 ml @ 20 mls/hr IV . Q24H [facility] Rx#:[id number] Output: Gastric Drainage 650 1100 Urine 255 440 70 Uretheral (Jarvis) 200 Other: Voiding Method Indwelling Catheter Indwelling Catheter Indwelling Catheter # Bowel Movements 0 ABP, PAP, CO, CI - Last Documented Arterial Blood Pressure 0/0 - Exam Gen. Physical examination revealed an 82-year-old white male, on mechanical ventilation, sedated, in no distress. Head exam atraumatic, normocephalic. HEENT: PERRLA, EOMI, neck supple, no icterus, no thyromegaly, no stridor, endotracheal tube is intact. Lungs were clear to auscultation and percussion, and with normal diaphragmatic excursion. No wheezes or rales were noted. Heart sounds, normal S1 and S2, no gallop, no murmur. Abdominal exam, flat abdomen, soft, nontender, no megaly, no rebound, no guarding. Diminished bowel sounds. Examination of the extremities revealed easily palpable radial, femoral and pedal pulses. There was no cyanosis, clubbing or edema. Examination of the skin revealed no evidence of significant rashes, suspicious appearing nevi or other concerning lesions. Neurologically unresponsive to any stimuli except grimacing to painful stimuli . No facial asymmetry. No nystagmus. No seizure activity has been noted. Skin there is a healed area of laceration over the right forehead. No cellulitis. No deformities. - Labs CBC & Chem 7: 02/23/18 04:10 02/23/18 04:10 Labs: Abnormal Lab Results - Last 24 Hours (Table) 02/22/18 02/22/18 02/22/18 Range/Units 12:04 12:04 12:04 WBC (3.8-10.6) k/uL RBC 3.96 L (4.30-5.90) m/uL Hgb 11.0 L (13.0-17.5) gm/dL Hct 35.1 L (39.0-53.0) % Plt Count (150-450) k/uL Lymphocytes # (Manual) 0.34 L (1.0-4.8) k/uL Metamyelocytes # (Man) 0.14 H (0) k/uL Myelocytes # (Manual) 0.43 H (0) k/uL Nucleated RBCs (0-0) /100 WBC PT >130.0 H (9.0-12.0) sec INR >10.0 H* (<1.2) APTT 124.1 H* (22.0-30.0) sec ABG pH (7.35-7.45) ABG pCO2 (35-45) mmHg ABG pO2 (83-108) mmHg ABG HCO3 (21-25) mmol/L ABG Total CO2 (19-24) mmol/L ABG O2 Saturation (94-97) % Sodium 130 L (137-145) mmol/L Potassium (3.5-5.1) mmol/L Chloride (98-107) mmol/L Carbon Dioxide 9 L* (22-30) mmol/L BUN (9-20) mg/dL Creatinine 5.09 H* (0.66-1.25) mg/dL Glucose 116 H (74-99) mg/dL POC Glucose (mg/dL) (75-99) mg/dL Plasma Lactic Acid Chucho (0.7-2.0) mmol/L Calcium 6.3 L* (8.4-10.2) mg/dL Phosphorus 9.9 H* (2.5-4.5) mg/dL Magnesium 0.8 L* (1.6-2.3) mg/dL AST 60 H (17-59) U/L Alkaline Phosphatase (38-126) U/L Total Protein 4.7 L (6.3-8.2) g/dL Albumin 2.3 L (3.5-5.0) g/dL 02/22/18 02/22/18 02/22/18 Range/Units 12:25 15:10 15:18 WBC (3.8-10.6) k/uL RBC (4.30-5.90) m/uL Hgb (13.0-17.5) gm/dL Hct (39.0-53.0) % Plt Count (150-450) k/uL Lymphocytes # (Manual) (1.0-4.8) k/uL Metamyelocytes # (Man) (0) k/uL Myelocytes # (Manual) (0) k/uL Nucleated RBCs (0-0) /100 WBC PT (9.0-12.0) sec INR (<1.2) APTT (22.0-30.0) sec ABG pH 7.02 L* (7.35-7.45) ABG pCO2 (35-45) mmHg ABG pO2 (83-108) mmHg ABG HCO3 10 L* (21-25) mmol/L ABG Total CO2 11 L (19-24) mmol/L ABG O2 Saturation (94-97) % Sodium (137-145) mmol/L Potassium (3.5-5.1) mmol/L Chloride (98-107) mmol/L Carbon Dioxide (22-30) mmol/L BUN (9-20) mg/dL Creatinine (0.66-1.25) mg/dL Glucose (74-99) mg/dL POC Glucose (mg/dL) 127 H (75-99) mg/dL Plasma Lactic Acid Chucho 4.7 H* (0.7-2.0) mmol/L Calcium (8.4-10.2) mg/dL Phosphorus (2.5-4.5) mg/dL Magnesium (1.6-2.3) mg/dL AST (17-59) U/L Alkaline Phosphatase (38-126) U/L Total Protein (6.3-8.2) g/dL Albumin (3.5-5.0) g/dL 02/22/18 02/22/18 02/22/18 Range/Units 16:10 16:10 16:10 WBC (3.8-10.6) k/uL RBC 4.23 L (4.30-5.90) m/uL Hgb 11.3 L (13.0-17.5) gm/dL Hct 36.5 L (39.0-53.0) % Plt Count (150-450) k/uL Lymphocytes # (Manual) 0.23 L (1.0-4.8) k/uL Metamyelocytes # (Man) (0) k/uL Myelocytes # (Manual) (0) k/uL Nucleated RBCs (0-0) /100 WBC PT 124.8 H (9.0-12.0) sec INR >10.0 H* (<1.2) APTT 101.2 H* (22.0-30.0) sec ABG pH (7.35-7.45) ABG pCO2 (35-45) mmHg ABG pO2 (83-108) mmHg ABG HCO3 (21-25) mmol/L ABG Total CO2 (19-24) mmol/L ABG O2 Saturation (94-97) % Sodium 136 L (137-145) mmol/L Potassium 2.8 L* (3.5-5.1) mmol/L Chloride 118 H (98-107) mmol/L Carbon Dioxide 8 L* (22-30) mmol/L BUN 87 H* (9-20) mg/dL Creatinine 2.72 H (0.66-1.25) mg/dL Glucose (74-99) mg/dL POC Glucose (mg/dL) (75-99) mg/dL Plasma Lactic Acid Chucho (0.7-2.0) mmol/L Calcium 3.3 L* (8.4-10.2) mg/dL Phosphorus (2.5-4.5) mg/dL Magnesium (1.6-2.3) mg/dL AST (17-59) U/L Alkaline Phosphatase 26 L (38-126) U/L Total Protein 2.7 L (6.3-8.2) g/dL Albumin 1.1 L (3.5-5.0) g/dL 02/22/18 02/22/18 02/22/18 Range/Units 16:16 17:20 17:38 WBC (3.8-10.6) k/uL RBC (4.30-5.90) m/uL Hgb (13.0-17.5) gm/dL Hct (39.0-53.0) % Plt Count (150-450) k/uL Lymphocytes # (Manual) (1.0-4.8) k/uL Metamyelocytes # (Man) (0) k/uL Myelocytes # (Manual) (0) k/uL Nucleated RBCs (0-0) /100 WBC PT (9.0-12.0) sec INR (<1.2) APTT (22.0-30.0) sec ABG pH 7.07 L* (7.35-7.45) ABG pCO2 (35-45) mmHg ABG pO2 305 H (83-108) mmHg ABG HCO3 10 L* (21-25) mmol/L ABG Total CO2 11 L (19-24) mmol/L ABG O2 Saturation 99.7 H (94-97) % Sodium 127 L (137-145) mmol/L Potassium (3.5-5.1) mmol/L Chloride 95 L (98-107) mmol/L Carbon Dioxide 11 L (22-30) mmol/L BUN 140 H* (9-20) mg/dL Creatinine 5.12 H* (0.66-1.25) mg/dL Glucose 128 H (74-99) mg/dL POC Glucose (mg/dL) 151 H (75-99) mg/dL Plasma Lactic Acid Chucho (0.7-2.0) mmol/L Calcium 6.0 L* (8.4-10.2) mg/dL Phosphorus (2.5-4.5) mg/dL Magnesium (1.6-2.3) mg/dL AST 88 H (17-59) U/L Alkaline Phosphatase (38-126) U/L Total Protein 4.8 L (6.3-8.2) g/dL Albumin 2.4 L (3.5-5.0) g/dL 02/22/18 02/22/18 02/22/18 Range/Units 18:51 20:14 23:19 WBC (3.8-10.6) k/uL RBC (4.30-5.90) m/uL Hgb (13.0-17.5) gm/dL Hct (39.0-53.0) % Plt Count (150-450) k/uL Lymphocytes # (Manual) (1.0-4.8) k/uL Metamyelocytes # (Man) (0) k/uL Myelocytes # (Manual) (0) k/uL Nucleated RBCs (0-0) /100 WBC PT (9.0-12.0) sec INR (<1.2) APTT (22.0-30.0) sec ABG pH 7.26 L (7.35-7.45) ABG pCO2 26 L (35-45) mmHg ABG pO2 (83-108) mmHg ABG HCO3 12 L (21-25) mmol/L ABG Total CO2 13 L (19-24) mmol/L ABG O2 Saturation 97.5 H (94-97) % Sodium (137-145) mmol/L Potassium (3.5-5.1) mmol/L Chloride (98-107) mmol/L Carbon Dioxide (22-30) mmol/L BUN (9-20) mg/dL Creatinine (0.66-1.25) mg/dL Glucose (74-99) mg/dL POC Glucose (mg/dL) 119 H 111 H (75-99) mg/dL Plasma Lactic Acid Chucho (0.7-2.0) mmol/L Calcium (8.4-10.2) mg/dL Phosphorus (2.5-4.5) mg/dL Magnesium (1.6-2.3) mg/dL AST (17-59) U/L Alkaline Phosphatase (38-126) U/L Total Protein (6.3-8.2) g/dL Albumin (3.5-5.0) g/dL 02/22/18 02/22/18 02/22/18 Range/Units 23:20 23:20 23:20 WBC 2.9 L (3.8-10.6) k/uL RBC (4.30-5.90) m/uL Hgb 12.4 L (13.0-17.5) gm/dL Hct 37.9 L (39.0-53.0) % Plt Count 149 L (150-450) k/uL Lymphocytes # (Manual) 0.12 L (1.0-4.8) k/uL Metamyelocytes # (Man) (0) k/uL Myelocytes # (Manual) (0) k/uL Nucleated RBCs (0-0) /100 WBC PT 31.5 H (9.0-12.0) sec INR 3.5 H (<1.2) APTT 67.8 H (22.0-30.0) sec ABG pH (7.35-7.45) ABG pCO2 (35-45) mmHg ABG pO2 (83-108) mmHg ABG HCO3 (21-25) mmol/L ABG Total CO2 (19-24) mmol/L ABG O2 Saturation (94-97) % Sodium 128 L (137-145) mmol/L Potassium (3.5-5.1) mmol/L Chloride 97 L (98-107) mmol/L Carbon Dioxide 10 L* (22-30) mmol/L BUN 145 H* (9-20) mg/dL Creatinine 4.80 H (0.66-1.25) mg/dL Glucose 105 H (74-99) mg/dL POC Glucose (mg/dL) (75-99) mg/dL Plasma Lactic Acid Chucho (0.7-2.0) mmol/L Calcium 6.7 L (8.4-10.2) mg/dL Phosphorus 7.9 H (2.5-4.5) mg/dL Magnesium 1.3 L (1.6-2.3) mg/dL AST (17-59) U/L Alkaline Phosphatase (38-126) U/L Total Protein (6.3-8.2) g/dL Albumin (3.5-5.0) g/dL 02/22/18 02/23/18 02/23/18 Range/Units 23:40 04:10 04:10 WBC (3.8-10.6) k/uL RBC (4.30-5.90) m/uL Hgb 12.3 L (13.0-17.5) gm/dL Hct 37.9 L (39.0-53.0) % Plt Count 113 L (150-450) k/uL Lymphocytes # (Manual) 0.32 L (1.0-4.8) k/uL Metamyelocytes # (Man) 0.05 H (0) k/uL Myelocytes # (Manual) (0) k/uL Nucleated RBCs 2 H (0-0) /100 WBC PT 23.8 H (9.0-12.0) sec INR 2.7 H (<1.2) APTT 65.2 H (22.0-30.0) sec ABG pH 7.27 L (7.35-7.45) ABG pCO2 24 L (35-45) mmHg ABG pO2 (83-108) mmHg ABG HCO3 11 L (21-25) mmol/L ABG Total CO2 12 L (19-24) mmol/L ABG O2 Saturation 97.7 H (94-97) % Sodium (137-145) mmol/L Potassium (3.5-5.1) mmol/L Chloride (98-107) mmol/L Carbon Dioxide (22-30) mmol/L BUN (9-20) mg/dL Creatinine (0.66-1.25) mg/dL Glucose (74-99) mg/dL POC Glucose (mg/dL) (75-99) mg/dL Plasma Lactic Acid Chucho (0.7-2.0) mmol/L Calcium (8.4-10.2) mg/dL Phosphorus (2.5-4.5) mg/dL Magnesium (1.6-2.3) mg/dL AST (17-59) U/L Alkaline Phosphatase (38-126) U/L Total Protein (6.3-8.2) g/dL Albumin (3.5-5.0) g/dL 02/23/18 02/23/18 02/23/18 Range/Units 04:10 04:35 05:48 WBC (3.8-10.6) k/uL RBC (4.30-5.90) m/uL Hgb (13.0-17.5) gm/dL Hct (39.0-53.0) % Plt Count (150-450) k/uL Lymphocytes # (Manual) (1.0-4.8) k/uL Metamyelocytes # (Man) (0) k/uL Myelocytes # (Manual) (0) k/uL Nucleated RBCs (0-0) /100 WBC PT (9.0-12.0) sec INR (<1.2) APTT (22.0-30.0) sec ABG pH 7.26 L (7.35-7.45) ABG pCO2 25 L (35-45) mmHg ABG pO2 (83-108) mmHg ABG HCO3 11 L (21-25) mmol/L ABG Total CO2 12 L (19-24) mmol/L ABG O2 Saturation 97.1 H (94-97) % Sodium 128 L (137-145) mmol/L Potassium (3.5-5.1) mmol/L Chloride 97 L (98-107) mmol/L Carbon Dioxide 11 L (22-30) mmol/L BUN 140 H* (9-20) mg/dL Creatinine 4.56 H (0.66-1.25) mg/dL Glucose 108 H (74-99) mg/dL POC Glucose (mg/dL) 111 H (75-99) mg/dL Plasma Lactic Acid Chucho (0.7-2.0) mmol/L Calcium 6.1 L* (8.4-10.2) mg/dL Phosphorus 8.1 H* (2.5-4.5) mg/dL Magnesium (1.6-2.3) mg/dL AST 112 H (17-59) U/L Alkaline Phosphatase (38-126) U/L Total Protein 4.5 L (6.3-8.2) g/dL Albumin 2.1 L (3.5-5.0) g/dL Microbiology - Last 24 Hours (Table) 02/22/18 16:10 Blood Culture Gram Stain - Preliminary Blood 02/22/18 16:10 Blood Culture - Final Blood 02/22/18 08:44 Blood Culture Gram Stain - Preliminary Blood 02/22/18 08:44 Blood Culture - Final Blood Assessment and Plan Assessment: 1 Acute hypoxic respiratory failure secondary to sepsis, septic shock, and gram- positive bacteremia. 2 acute kidney injury, secondary to intravascular volume depletion and dehydration secondary to diarrhea in addition to intake of nonsteroidal anti- inflammatory medication for back pain. 3 acute metabolic acidosis secondary to above. 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 Critical care time is 35 minutes. Time with Patient: Greater than 30
--- NOTE | 2018-02-23 13:51 | P.CON ---
Consult Note - . Consult date: 02/23/18 Assessment/Plan:: I discussed this patient's case with the ER physicians yesterday. Patient presented with severe acidosis. CAT scan showed small bowel structure. Per the ER the patient was not having any abdominal tenderness nor was complaining of pain at that time. Upon my arrival today to round on this patient he had been made comfort care and . No formal consult placed.
--- NOTE | 2018-02-24 07:08 | P.DS ---
Providers Date of admission: 02/22/18 10:33 Attending physician: Deshawn Castillo MD Consults: 02/22/18 10:33 Consult Physician Routine Consulting Provider: Jose Scott Consult Reason/Comments: SBO Do you want consulting provider notified?: Already Contacted Consult Physician Routine Consulting Provider: Diana Patel Consult Reason/Comments: ARF Do you want consulting provider notified?: Already Contacted Consult Physician Urgent Consulting Provider: Francis Foss Consult Reason/Comments: Acute renal failure, metabolic acidosis, intensive care management Do you want consulting provider notified?: Already Contacted 02/22/18 13:48 Consult Physician Urgent Consulting Provider: Ramon Marroquin Consult Reason/Comments: shock , paced rhythem Do you want consulting provider notified?: Yes Primary care physician: Delfino Fox Procedures: This is a pleasant 82 years old male with past medical history of coronary artery disease, chronic atrial fibrillation, hypertension, thyroid disorder, MRSA infection, status post cardiac cath and pacemaker. Status post thyroidectomy. Who presents because of confusion and lethargy, pt could not provide information so it was taken from the family (, daughter, and sister ) at bed site, as per family pt came to ED on 02/06 after he fell and hit his head and had bleeding wound from his forehead, he went to his pcp who treated him conservatively , on 02/08 he came to ED after he bled from his forehead wound which and brought to the ED , bleeding was controlled and pt was sent home. from 02/13-02/16 was admitted to the hospital after he sustained grand mal seizure for 3 min and he was evaluated by neurologist at that time, pt was started on keppra , pt also had CT scan of the lumbar spine which showed no fracture, this time pt comes because he is getting more and more confused , as per family he is been having diarrhea over 3-4 dys, no abd pain or n/v as per family, in the last 24 hrs pt had two large bowel movement, family did not notice any blood in it. on admission he was found to be hypotensive (94/41) and with acute renal failure (cr 5.6 on admission) with electolytes abnormality. pt was admitted to the ICU for further management. Hemoglobin 13.2, WBC 5.9. ABG showing pH of 7.0 to, pCO2 33, and pO2: 2. Sodium 129, potassium 5.5 calcium low at 6.6.. Calcium 5.6. Lactic acid high at 4.0. Liver function tests were unremarkable except for mildly elevated AST at 61. Total creatine kinase 2253, CK-MB is high at 34.0, troponins less than 0.012. Head CT is negative for acute abnormality x-ray showing cardiomegaly, and clear lungs. CT of the abdomen without contrast showing marked elevation of the left hemidiaphragm, cardiomegaly, scant right pleural effusion pt was treated with iv fluids , antibiotic , calcium and bicarb treatment as well as other electrolytes management. he admitted to ICU and mailing specialist evaluated pt for septic and hypovolemic shock and he was started on vasopressors , pt was intubated, pt remained in critical team and family at bed side decided for comfort care only through their encounter with the ICU team for his poor prognosis and advance severe disease. pt was made no code and comfort measures, pt on 02/23/2018, before i have the chance to see him that day. Patient Condition at Discharge: Serious Plan - Discharge Summary Discharge Rx Participant: No New Discharge Prescriptions: No Action amLODIPine/VALSARTAN [Exforge 10-160 mg Tablet] 1 tab PO DAILY Tamsulosin HCl [Flomax] 0.4 mg PO HS Cetirizine HCl [Zyrtec] 10 mg PO DAILY Allopurinol [Zyloprim] 100 mg PO HS Warfarin [Coumadin] 2.5 mg PO DAILY Omeprazole 20 mg PO DAILY Levothyroxine Sodium [Synthroid] 137 mcg PO DAILY Furosemide [Lasix] 40 mg PO DAILY Naproxen [Naprosyn] 500 mg PO Q12HR PRN PRN Reason: Pain Acetaminophen Tab [Tylenol] 650 mg PO Q6HR PRN tab PRN Reason: Mild Pain Or Fever > 100.5 Folic Acid 1 mg PO DAILY #30 tablet levETIRAcetam [Keppra] 500 mg PO Q12HR #60 tab Multivitamins, Thera [Multivitamin] 1 tab PO DAILY #30 tablet Thiamine [Vitamin B-1] 100 mg PO DAILY #30 tablet HYDROcodone/APAP 5-325MG [Cadiz 5-325] 1 tab PO Q8H PRN PRN Reason: Pain Discharge Medication List Allopurinol [Zyloprim] 100 mg PO HS 02/08/18 [History] Cetirizine HCl [Zyrtec] 10 mg PO DAILY 02/08/18 [History] Furosemide [Lasix] 40 mg PO DAILY 02/08/18 [History] Levothyroxine Sodium [Synthroid] 137 mcg PO DAILY 02/08/18 [History] Omeprazole 20 mg PO DAILY 02/08/18 [History] Tamsulosin HCl [Flomax] 0.4 mg PO HS 02/08/18 [History] Warfarin [Coumadin] 2.5 mg PO DAILY 02/08/18 [History] amLODIPine/VALSARTAN [Exforge 10-160 mg Tablet] 1 tab PO DAILY 02/08/18 [History ] Naproxen [Naprosyn] 500 mg PO Q12HR PRN 02/13/18 [History] Acetaminophen Tab [Tylenol] 650 mg PO Q6HR PRN tab 02/16/18 [Rx] Folic Acid 1 mg PO DAILY #30 tablet 02/16/18 [Rx] Multivitamins, Thera [Multivitamin] 1 tab PO DAILY #30 tablet 02/16/18 [Rx] Thiamine [Vitamin B-1] 100 mg PO DAILY #30 tablet 02/16/18 [Rx] levETIRAcetam [Keppra] 500 mg PO Q12HR #60 tab 02/16/18 [Rx] HYDROcodone/APAP 5-325MG [Cadiz 5-325] 1 tab PO Q8H PRN 02/22/18 [History] Follow up Appointment(s)/Referral(s): Delfino Fox DO [Primary Care Provider] - 1-2 days Discharge Disposition: - Preliminary Cause of Preliminary Cause of : septic and hypovolemic shock
== END 2018-02-23 11:42 | disposition expired | DRG 871 ==
LOC: EC 08:22 → 6ICU 10:33
PROVIDERS: ADMIT Internal Medicine; ATTEND Internal Medicine
PROC: 02HV33Z Insertion of Infusion Device into Superior Vena Cava, Percutaneous Approach (ICD-10-PCS; principal; 2018-02-22)
PROC: 4A133B1 Monitoring of Arterial Pressure, Peripheral, Percutaneous Approach (ICD-10-PCS; 2018-02-22)
PROC: 4A133J1 Monitoring of Arterial Pulse, Peripheral, Percutaneous Approach (ICD-10-PCS; 2018-02-22)
PROC: 5A1935Z Respiratory Ventilation, Less than 24 Consecutive Hours (ICD-10-PCS; 2018-02-22)
PROC: 0BH17EZ Insertion of Endotracheal Airway into Trachea, Via Natural or Artificial Opening (ICD-10-PCS; 2018-02-22)
DX: A41.89 Other specified sepsis (principal); R65.21 Severe sepsis with septic shock; G93.40 Encephalopathy, unspecified; J96.01 Acute respiratory failure with hypoxia; N17.9 Acute kidney failure, unspecified; E87.1 Hypo-osmolality and hyponatremia; E87.2 Acidosis; K56.609 Unspecified intestinal obstruction, unspecified as to partial versus complete obstruction; M48.54XA Collapsed vertebra, not elsewhere classified, thoracic region, initial encounter for fracture; Z85.850 Personal history of malignant neoplasm of thyroid; E83.51 Hypocalcemia; E87.5 Hyperkalemia; E86.0 Dehydration; E89.0 Postprocedural hypothyroidism; G40.409 Other generalized epilepsy and epileptic syndromes, not intractable, without status epilepticus; I11.0 Hypertensive heart disease with heart failure; I25.10 Atherosclerotic heart disease of native coronary artery without angina pectoris; I48.2 Chronic atrial fibrillation; I50.9 Heart failure, unspecified; K40.90 Unilateral inguinal hernia, without obstruction or gangrene, not specified as recurrent; M47.816 Spondylosis without myelopathy or radiculopathy, lumbar region; M48.061 Spinal stenosis, lumbar region without neurogenic claudication; M51.36 Other intervertebral disc degeneration, lumbar region; N40.0 Benign prostatic hyperplasia without lower urinary tract symptoms; R79.1 Abnormal coagulation profile; T45.511A Poisoning by anticoagulants, accidental (unintentional), initial encounter; T45.515A Adverse effect of anticoagulants, initial encounter; Z51.5 Encounter for palliative care; Z66 Do not resuscitate; Z79.01 Long term (current) use of anticoagulants; Z79.899 Other long term (current) drug therapy; Z82.49 Family history of ischemic heart disease and other diseases of the circulatory system; Z83.3 Family history of diabetes mellitus; Z86.14 Personal history of Methicillin resistant Staphylococcus aureus infection; Z87.891 Personal history of nicotine dependence; Z95.0 Presence of cardiac pacemaker; Z91.81 History of falling; S01.81XD Laceration without foreign body of other part of head, subsequent encounter; W18.30XD Fall on same level, unspecified, subsequent encounter; R19.7 Diarrhea, unspecified; Z79.890 Hormone replacement therapy; R53.1 Weakness; M10.9 Gout, unspecified
CPT/HCPCS: 36415; 36600; 70450; 71045; 74176; 80048; 80053; 81001; 82550; 82553; 82803; 82805; 83036; 83605; 83735; 84100; 84484; 85025; 85610; 85730; 87040; 87070; 87077; 87086; 87186; 87205; 93005; 94002; 94640; 96361; 96365; 96375; 99291